=== PATIENT | male | born 1940 | race Caucasian/White ===

== ENCOUNTER → 2019-04-13 10:05 | Outpatient (CLI) | payer MEDICARE, OTHER, SELFPAY ==
--- NOTE | 2019-04-13 | DI.MRI.S_ITS ---
PROCEDURE: MR LUMBAR SPINE WO CON INDICATIONS: pinched nerve TECHNIQUE: Noncontrast sagittal T1 spin echo and T2 fast echo, sagittal STIR, axial T1 and T2 fast spin echo through the lumbar spine. In cases with scoliosis, additional coronal T2 fast spin echo may be performed. COMPARISON: None. FINDINGS: Image quality: Excellent. Alignment and Curvature: There is normal bony alignment. Bone Marrow: Reactive endplate changes noted at L2-L3, L3-L4, L4-L5 and L5-S1 discs. No acute vertebral body compression fractures. Spinal Cord: Conus medullaris terminates at the L1 level. Visualized cord demonstrates normal signal and size. Paraspinous Soft Tissues: No paravertebral masses. L1-L2: Loss of disc signal. Minimal, diffuse disc bulge. Mild bilateral facet hypertrophy. No central stenosis. Mild bilateral neural foraminal narrowing. No neural impingement. L2-L3: Loss of disc signal and height. Mild, diffuse disc bulge. Moderate facet and severe ligamentum flavum hypertrophy. Severe narrowing of the central canal with compression of the nerve roots of the cauda equina. Mild right and moderate left neural foraminal narrowing. L3-L4: Loss of disc signal and height. Mild, diffuse disc bulge. Right central disc protrusion. Right central disc protrusion abuts and slightly displaces the traversing right L4 nerve root. Mild bilateral facet hypertrophy. Mild to moderate narrowing of the central canal. Mild bilateral neural foraminal narrowing. L4-L5: Loss of disc signal. Mild loss of disc height. Mild, diffuse disc bulge. Moderate facet and moderate ligamentum flavum hypertrophy. Moderate narrowing of the central canal. Severe right and moderate left neural foraminal narrowing with compression of the exiting right L4 nerve root. L5-S1: Loss of the signal. Minimal, diffuse disc bulge. Moderate bilateral facet. Epidural lipomatosis. Moderate narrowing of the central canal. Moderate bilateral neural foraminal narrowing. No neural impingement. IMPRESSION: 1. Multilevel degenerative disease. 2. Multilevel facet arthropathy. 3. Severe L2-L3 central canal stenosis. Moderate L4-L5 central canal narrowing. Mild to moderate L3-L4 central canal narrowing. 4. Severe right and moderate left L4-L5 neural foraminal narrowing. Moderate bilateral L5-S1 neural foraminal narrowing. Mild right and moderate left L2-L3 neural foraminal narrowing. Mild bilateral L1-L2 and L3-L4 neuroforaminal narrowing. 5. Compression of the exiting right L4 nerve root secondary to neural foraminal narrowing. Please correlate with clinical data. 6. Compression of the nerve roots of cauda equina secondary to L2-L3 central canal narrowing. Please correlate with clinical data. Dictated by: Tatyana Wesley MD, PhD on 04/13/2019 at 13:17 Approved by: Tatyana Wesley MD, PhD on 04/13/2019 at 13:32
== END ==
PROVIDERS: Visit Provider Orthopaedic Surgery Orthopaedic Surgery of the Spine
DX: M54.5 Low back pain (principal); M51.36 Other intervertebral disc degeneration, lumbar region; M47.816 Spondylosis without myelopathy or radiculopathy, lumbar region; M47.817 Spondylosis without myelopathy or radiculopathy, lumbosacral region; M48.061 Spinal stenosis, lumbar region without neurogenic claudication; M48.07 Spinal stenosis, lumbosacral region; E88.2 Lipomatosis, not elsewhere classified
CPT/HCPCS: 72148

== ENCOUNTER 2019-07-04 09:35 | Inpatient (IN) | payer MEDICARE, OTHER, SELFPAY ==
[2019-06-29 14:35] VITALS: BMI 33.7
[2019-07-04] VITALS (20 sets, daily range): BP systolic 87–150; BP diastolic 45–80; PULSE 43–64; RESP 10–20; TEMP 36–36.9; O2SAT 90–99; BMI 32.8
--- NOTE | 2019-07-04 06:00 | DI.RAD.S_ITS ---
PROCEDURE: XR PELVIS 1-2V INDICATIONS: post op TECHNIQUE: 1 view of the lower pelvis acquired. COMPARISON: None. FINDINGS: Bones: Patient is status post left hip arthroplasty, with hardware components in expected positions. The hip joint appears congruent. The visualized bony structures appear intact. Soft tissues: Overlying postoperative changes are noted. No suspicious soft tissue densities. IMPRESSION: Expected postoperative appearance. Dictated by: Bladimir Ramey M.D. on 07/04/2019 at 16:58 Approved by: Bladimir Ramey M.D. on 07/04/2019 at 16:59
[2019-07-04] MEDS: PREGABALIN 75 MG CAPSULE PO (10:06)
[2019-07-04] MEDS: CELECOXIB 200 MG CAPSULE PO (10:07)
[2019-07-04] MEDS: ACETAMINOPHEN 325 MG TABLET 975 MG PO ×2 (10:07→21:49)
[2019-07-04] MEDS: LACTATED RINGERS 1,000 ML 42 ML IV (11:25)
--- NOTE | 2019-07-04 11:46 | PM.PREOP ---
Pre-operative Note Interval Note History & Physical reviewed/Exam performed by Physician: Yes Changes to H&P: No
[2019-07-04] MEDS: CEFAZOLIN 2 GM/100 ML FROZ.PIGGY IV ×2 (12:35→21:49)
--- NOTE | 2019-07-04 13:09 | SUR.OPER ---
Lateral on padded OR bed. Gel axillary roll. Arms secured on padded armboard with pillow supporting top arm. Padded hip positioner braces x4 - anterior and posterior chest and pelvis. Additional gel pad used anterior pelvis. Gel pad under bottom leg from knee to foot and secured with tape over sheet.
[2019-07-04] MEDS: KETOROLAC 30 MG/ML VIAL IV (13:13)
[2019-07-04] MEDS: ROPIVACAINE 0.5% PF 5 MG/ML 20ML VIAL 60 ML INJ (13:13)
[2019-07-04] MEDS: MORPHINE 4 MG/ML INJ INJ (13:13)
--- NOTE | 2019-07-04 14:15 | P.OP_ITS ---
Operative Date/Time/Diagnoses Date of procedure: 07/04/19 Time of procedure: 14:15 Pre-op diagnosis: Left hip degenerative joint disease Post-op diagnosis: same Procedure & Clinicians Procedure: Left total hip arthroplasty (CPT code 34154 with elder assistant) Same procedure as scheduled: Yes Indications: Patient is an 78-year-old male with severe left hip DJD. The patient has pain with activities and at rest, limited ambulation and activity tolerance, difficulties with ADLs, and failure of conservative treatment. We have discussed the nature of condition, treatment options, risks and benefits, and patient elects to proceed with total hip arthroplasty and gives informed consent. Surgeon: Jhonatan Braun Senior Military Analyst: Florin Barba Anesthesia Type: General and Spinal Operative Notes Closure Type: primary Specimen(s): none sent Prosthetic devices, grafts, tissues, transplants, or devices: Acetabulum: Henderson [employer] Nephew R3 acetabular component size 54 mm Femoral component: Henderson [employer] Nephew Anthology stem size 7 with high offset Femoral head: 36 mm + 4 cobalt chrome Estimated Blood Loss (mL): 150 Procedure in detail: After induction of anesthetic, and administration of IV antibiotics, the patient was positioned in the lateral decubitus position with all bony prominences well padded and pelvic position secured using a hip commercial finance manager positioning device. Left hip and lower extremity prepped and draped in the usual sterile fashion, then a longitudinal incision was created centered over the greater trochanter and carried sharply through the skin and subcutaneous tissues down to the fascia dana which was divided longitudinally and retracted with a Charnley retractor. External rotators visualize, cut, tagged, and retracted posteriorly, then the capsule was cut in a T-type fashion with the corners tagged and retracted. Hip was dislocated and femoral neck cut made accor ding to preoperative templating. Acetabular retractors then placed, and the acetabular labrum and osteophytes were excised. The acetabulum was then sequentially reamed to 53 mm with an excellent circumferential ream and fit with the trial. The trial component was removed and a permanent size 54 mm Henderson and Nephew R3 acetabular component was selected, positioned, and impacted with satisfactory position and fixation achieved. Permanent liner was then inserted with the elevated lip directed posteriorly. Soft tissue then removed off the lateral femoral neck in the lateral neck was entered using a box osteotome. T- handled reamers placed down the canal followed by sequential broaching to 7 with the final broach left in place for trial reduction which demonstrated good leg length, range of motion, and stability characteristics with a 36 mm +4 trial ball, and another trial performed with a high offset neck which yielded excellent leg length range of motion and stability characteristics. The trial and broach were removed, and a permanent size 7 high offset Henderson and Nephew Anthology stem was selected and inserted with excellent position and fixation achieved. Another trial reduction yielded the above characteristics so the trial ball was exchanged for a permanent 36 mm +4 cobalt chrome ball. The hip was irrigated and reduced and excellent leg length range of motion and stability bogdan racteristics were achieved and maintained. Periarticular tissues were infiltrated with combination of ropivacaine, morphine, and Toradol. The hip was copiously irrigated, and the capsule repaired with #2 Ethibond, and the piriformis was repaired back to the greater trochanter with the same. Fascia dana closed with interrupted #1 Ethibond sutures, and the subcutaneous tissues were closed in 2 layers of 0 Vicryl and 2 0 Vicryl. Skin was closed with sekou and sterile dressings applied, and anesthetic was terminated. Complications: none Post-operative Condition: stable Disposition: PACU Plan for aftercare: Patient will be admitted to the acute care [facility], and anticipate discharge on postop day 1 or 2 with follow-up in office in 10-14 days. Outpatient physical therapy will be arranged and patient will continue to observe posterior hip precautions. Patient will continue use of postoperative Lovenox for 10 days postop.
--- NOTE | 2019-07-04 15:00 | PC.ADMIT ---
[address] Admission Note: The patient,Mele Koroma,78 y/o, was given written information regarding hospital policies, unit procedures and contact persons. Patient's smoking status: Former smoker. Vital Signs - 8 hr 07/04/19 10:13 07/04/19 14:15 07/04/19 14:19 Temperature 97.0 F L 98.5 F Pulse Rate 52 L 52 L 50 L Respiratory Rate 18 17 12 Blood Pressure 150/72 H 87/45 L 91/60 Pulse Oximetry 99 96 96 07/04/19 14:24 07/04/19 14:30 07/04/19 14:35 Temperature Pulse Rate 50 L 50 L 51 L Respiratory Rate 10 L 10 L 16 Blood Pressure 91/51 L 102/72 108/47 L Pulse Oximetry 94 95 96 07/04/19 14:40 07/04/19 14:44 07/04/19 14:55 Temperature 97.9 F 97.3 F L Pulse Rate 48 L 48 L 46 L Respiratory Rate 16 16 Blood Pressure 120/61 114/55 L 111/80 Pulse Oximetry 97 95 07/04/19 14:58 Temperature 97.3 F L Pulse Rate 46 L Respiratory Rate 16 Blood Pressure 111/80 Pulse Oximetry 95 Rec'd pt from PACU at 1450 in pt bed. Pt is AAO x3 with clear speech. No movement to BLE r/t spinal anesthesia. VSS. RA. Oriented to room, environment, plan of care. Denies pain. Denies urge to urinate. Bulky dsg CDI. Ice pack applied. Call light in reach.
[2019-07-04] MEDS: LACTATED RINGERS 1,000 ML 125 ML IV (17:05)
--- NOTE | 2019-07-04 17:50 | PC.NURSE ---
Addendum entered by Marissa Vargas R.N. 07/04/19 22:44: 22:30- pt unable to void after sitting at bedside with urinal for 20 minutes. bladder scan shows 377 ml. Order to straight cath for over 400 ml. Original Note: demi note Pt has numbness to feet, but is able to slightly wiggle toes. pt Was tolerating water and ice chips. Ordered pt full liquid diet for dinner. Pt ate 2 spoonfuls of soup and vomited 700 ml of water. Diet downgraded to sips/chips. pt said nausea came on suddenly and resolved after emesis.
[2019-07-04] MEDS: ONDANSETRON 4 MG/2 ML INJ IV (19:28)
[2019-07-04] MEDS: diphenhydrAMINE 50 MG/ML VIAL 25 MG IV (19:28)
[2019-07-04] MEDS: ASPIRIN EC 81 MG TABLET PO (21:50)
[2019-07-04] MEDS: LOSARTAN 50 MG TABLET 100 MG PO (21:50)
[2019-07-04] MEDS: SIMVASTATIN 40 MG TABLET PO (21:51)
[2019-07-05] VITALS (7 sets, daily range): BP systolic 102–135; BP diastolic 38–63; PULSE 55–77; RESP 14–21; TEMP 36.8–37.3; O2SAT 94–98
[2019-07-05] MEDS: ONDANSETRON 4 MG/2 ML INJ IV (00:14)
[2019-07-05] MEDS: diphenhydrAMINE 50 MG/ML VIAL 25 MG IV (00:14)
[2019-07-05] MEDS: LACTATED RINGERS 1,000 ML 125 ML IV (01:29)
[2019-07-05 04:56] LABS: Hematocrit 32.6 % (41-53); Hemoglobin 11.3 g/dL (13.5-17.5)
[2019-07-05] MEDS: CEFAZOLIN 2 GM/100 ML FROZ.PIGGY IV (05:00)
[2019-07-05] MEDS: FUROSEMIDE 20 MG TABLET PO (05:07)
[2019-07-05] MEDS: PANTOPRAZOLE 20 MG TABLET PO (05:07)
--- NOTE | 2019-07-05 06:37 | PC.NURSE ---
Patient has denied pain throughout night, states he has full sensation to BLEs, sat at side of bed to attempt to void at 0230, unable, bladder scan read 264ml, however previous scan at 230 read 377ml. Straight cath done, 400ml clear concentrated urine returned, patient tolerated well. AM dose of PO Lasix given at 0600 per his request. VSS. LR infusing at 125ml/hr, taking in large amounts of fluid without nausea. Lt hip drsg reinforced.
[2019-07-05] MEDS: ENOXAPARIN 40 MG/0.4 ML SYRINGE SUBCUT (08:16)
[2019-07-05] MEDS: CARVEDILOL 25 MG TABLET PO ×2 (08:16→20:40)
[2019-07-05] MEDS: ASPIRIN EC 81 MG TABLET PO ×2 (08:16→20:40)
[2019-07-05] MEDS: ACETAMINOPHEN 325 MG TABLET 975 MG PO ×2 (08:16→18:58)
[2019-07-05] MEDS: SPIRONOLACTONE 25 MG TABLET PO (08:17)
[2019-07-05] MEDS: LOSARTAN 50 MG TABLET PO (08:17)
[2019-07-05] MEDS: MULTIVITAMIN 1 TABLET 1 TAB PO (08:17)
[2019-07-05] MEDS: FINASTERIDE 5 MG TABLET PO (08:17)
[2019-07-05] MEDS: TERAZOSIN 5 MG CAPSULE 10 MG PO (08:17)
--- NOTE | 2019-07-05 08:30 | CM.DANOTE ---
DCP: Case received, EMR reviewed and met with patient. Introduced self and role. Was able to meet with patient in his room this morning to obtain baseline activity and health status. DCP assessment/template completed with information currently available. Patient is a 78 year old male who admitted yesterday morning to the care of the orthopedic team. PCP: Dr. Siegel. Payer: confirmed: Medicare/ for Life Patient came to the hospital for a surgical procedure. He had a left total hip arthroplasty. Patient has history of degenerative joint disease. Met with patient in his room. Pleasant, alert and oriented. He was sitting up in his bed getting ready for breakfast. Confirmed his primary care provider, as stated above. Patient has been independent. He mentioned that he has not used any canes or walkers prior to his surgery, but his did get him a walker for use. He resides with his , Radha, in [place]. P: DCP to continue to follow. He will be working with physical therapy. He has outpatient physical therapy set up at [facility]. Will collaborate with physical therapy team. Patient should be able to go home when medically stable, and cleared by P.T. Jenna Morales RN/Ripper Operator
--- NOTE | 2019-07-05 10:35 | PT.IIE ---
Current Diagnoses Unilateral primary osteoarthritis, left hip (07/04/19) Spinal stenosis, lumbar region with neurogenic claudication (07/04/19) Strain of muscle, fascia and tendon at neck level, initial encounter (07/04/19) Surgery Performed Operation Date: 07/04/19 11:45 Actual Procedures p Total Hip Arthroplasty(Left) - Jhonatan Braun MD Surgical History (Last Updated 06/29/19 @ 14:54 by Gabby Dahl, RN) Hx of appendectomy (Acute) Hx of cardiac cath (Acute 06/15/19) Medical History (Last Updated 06/29/19 @ 14:54 by Gabby Dahl RN) Bladder cancer (Acute) BPH (benign prostatic hyperplasia) (Acute) CAD (coronary artery disease) (Acute) CHF (congestive heart failure) (Acute) Colonic polyp (Acute) Cyst (Acute) Former smoker (Acute) GERD (gastroesophageal reflux disease) (Acute) HLD (hyperlipidemia) (Acute) HTN (hypertension) (Acute) Hyperbilirubinemia (Acute) Myocardial infarct (Acute ~1995) Subclinical hyperthyroidism (Acute ~02/2014) Physical Therapy Inpatient Evaluation/Re-Eval M1 PT/OT-IP Prior Functional Status Start: 07/05/19 13:30 Freq: NEEDED Status: Active Protocol: Document 07/05/19 10:35 AB (Rec: 07/05/19 13:50 AB [id number]) Medical Review Prior Functional Status Medical History Reviewed Yes Communication able to make needs known Mobility and Gait pt stated that he is independent with all mobilities and ambulation without AD Social History Household Members spouse Living Arrangements House Number of Floors (Floors) One Floor Number of Stairs To Enter/Railing? 2 steps to enter with bilateral rails Home Environment High Toilet,Walk in Shower Home Equipment Front Wheel Walker,Four Wheel Walker,Straight Cane,Crutches, Raised Toilet Seat w/Armrests, Shower Seat with Backrest,Hand Held Shower,Grab Bars In Shower M2 PT-IP Current Condition Start: 07/05/19 13:30 Freq: NEEDED Status: Active Protocol: Document 07/05/19 10:35 AB (Rec: 07/05/19 13:50 AB [id number]) Physical Therapy Current Condition Current Condition Evaluation Date 07/05/19 Treatment Diagnosis s/p L JOVANNY posterior approach; difficulty in walking Onset Date 07/04/19 Precautions Posterior Hip Precautions No Hip Flexion > 90 degrees,No Hip Internal Rotation,No Hip Adduction Weight Bearing Status Weight Bearing Status Weight Bear as Tolerated M3 PT-IP Subjective Start: 07/05/19 13:30 Freq: NEEDED Status: Active Protocol: Document 07/05/19 10:35 AB (Rec: 07/05/19 13:50 AB [id number]) Subjective Physical Therapy Visit Type Type Initial Evaluation Visit Start Time 10:35 Visit Stop Time 11:17 Total Visit Minutes 42 Number of BRIDGE CARPENTER Visits 0 Physical Therapy Visit Comments Patient Comments Pt agreeable to do PT Patient Goals to go home Therapy Pain Assessment Pain When Pain Assessed During Mobility Pain Present Pain Present Pain Reported Location Left Hip Scale Used pain scale not stated Pain Management Techniques Timing of Activity with Medications M4 PT-IP Mobility and Gait Start: 07/05/19 13:30 Freq: NEEDED Status: Active Protocol: Document 07/05/19 10:35 AB (Rec: 07/05/19 13:50 AB [id number]) PT-Bed Mobility Assessment Supine to Sit Supine to Sit Standby Assistance Scooting Scooting to Edge of Bed Standby Assistance PT-Transfer Assessment Sit to and From Stand Sit to and from Stand Moderate Assistance,Maximum Assistance,1 Person Assistance ,Use of Upper Extremities Equipment Transfer Assistive Device Gait Belt,Front Wheeled Walker Orthotic/Prosthetic Devices or Brace: No Transfers Transfer Destination Chair Transfer Technique Stand Step Pivot Transfer Ability Level of Assist Moderate Assistance,Maximum Assistance,1 Person Assistance ,Use of Upper Extremities Comments Mobility Comments attempted sit <>stand x 3 reps, mod to max A requires and max cues for techniques and how to maintain hip precautions. Gait Assessment Gait Gait Assistance Required: Moderate Assistance Distance (Feet) 10 Able to Maintain Weight Bearing Status Yes During Gait Assistive Devices Assistive Device Gait Belt,Front Wheeled Walker Orthotic/Prosthetic Devices or Brace: No Gait Deviations General Gait Pattern Antalgic,Decreased Stride Length,Decreased Feet Clearance,Step-to Gait Factors Limiting Gait Function Factors Limiting Gait Function Decreased Activity Tolerance, Decreased Strength,Limited Range of Motion,Pain,Poor Balance,Poor Safety Awareness Comments Gait Comments pt can be impulsive and requires cues tjo maintain hip precautions. PT-Balance Assessment Sitting Balance and Reactions Static Sitting Balance Ability Good Dynamic Sitting Balance Ability Good Standing Balance and Reactions Static Standing Balance Ability Fair Dynamic Standing Balance Ability Poor Device Used FWW M5 PT-IP Objective Assessments Start: 07/05/19 13:30 Freq: NEEDED Status: Active Protocol: Document 07/05/19 10:35 AB (Rec: 07/05/19 13:50 AB [id number]) Orientation Orientation/Cognition Level of Alertness Alert Orientation Name,Age,Place,Situation Safety Awareness Decreased Safety Awareness Memory Description Short Term Impaired Gross Range of Motion Lower Extremity ROM Assessment Within Functional Limits Strength Lower Extremity Strength Assessment Bilaterally Impaired Comments Strength Comments RLE 3+/5 LLE: 3-/5 Coordination Assessment Gross Coordination Gross Coordination WNL Sensation Assessment Sensation Gross Sensation WNL Muscle Tone Muscle Tone WNL Yes M6 PT-IP Treatment Start: 07/05/19 13:30 Freq: NEEDED Status: Active Protocol: Document 07/05/19 10:35 AB (Rec: 07/05/19 13:50 AB [id number]) Physical Therapy Treatment Education Education Provided Precautions,Weight Bearing Status,Post-Op Packet,Safety M7 PT-IP Assessment and Plan Start: 07/05/19 13:30 Freq: NEEDED Status: Active Protocol: Document 07/05/19 10:35 AB (Rec: 07/05/19 13:50 AB [id number]) PT Summary Assessment and Plan Potential Rehabilitation Potential Good Status of Condition at Evaluation Evolving Summary Impairments Pain,ROM,Strength,Balance, Coordination,Sensation,Tone, Cognition,Bed Mobility, Transfers,Gait,Activity Tolerance Assessment Summary pt requiring mod to max A with transfers and ambulation using FWW. d/c plan depending on progress. will conduct caregiver training and stair climbing training when appropriate. will continue to assess progress for safe d/c plan. Goals Bed Mobility Goal Independent Transfer Goal Standby Assistance,Front Wheeled Walker Gait Goal Standby Assistance,Front Wheel Walker Gait Distance 150 Other Goals up/down 2 steps bilateral rails SBA Days to Meet Goals 5 Frequency of Treatment Frequency Of Treatment Twice a Day Treatment Plan Physical Therapy Treatment Plan Bed Mobility Training,Transfer Training,Gait Training, Therapeutic Exercise,Balance Retraining,Post Op Education, Discharge Planning,Hot or Cold Pack,Neuromuscular Re-ed, Coordination Retraining,Manual Therapy Other Recommendations and Next Treatment caregiver training, ambulation Focus , stair climbing; sti<>stand Recommendations To Nursing Amount of Assist Needed 1 Person Assist Discharge Recommendations PT Discharge Recommendations Home with 24/ Assist,Home Health,SNF Rehab,Outpatient PT Other Discharge Recommendations depending on progress: SNF vs home with 20/04 and outpt/HHPT
[2019-07-05] MEDS: ONDANSETRON 4 MG ODT PO (11:19)
--- NOTE | 2019-07-05 13:51 | PC.NURSE ---
Day Shift Note Pt up with PT to chair, had episode of emesis (150 ml out), denied nausea after event. BP was in the 120s systolic. Tolerated lunch without issue, no further episodes. Last void was 0330 via straight cath - pt drinking several cups of water throughout shift (see I&Os) but was unable to void via urinal x2 while standing. Bladder scanned with 521 ml showing in bladder. About 600 ml of clear malinda urine resulted with catheter placement. Message left for MARTY Aquino to update on the above. Pt continues to deny pain. Call light within reach, using appropriately to make needs known.
--- NOTE | 2019-07-05 14:30 | PC.NURSE ---
Day Shift Note Pt up with PT to chair, had episode of emesis (150 ml out), denied nausea after event. BP was in the 120s systolic. Tolerated lunch without issue, no further episodes. Last void was 0330 via straight cath - pt drinking several cups of water throughout shift (see I&Os) but was unable to void via urinal x2 while standing. Bladder scanned with 521 ml showing in bladder. About 400 ml of clear malinda urine resulted with catheter placement. Message left for MARTY Aquino to update on the above. Pt continues to deny pain. Call light within reach, using appropriately to make needs known.
--- NOTE | 2019-07-05 16:09 | PM.PNPO.1 ---
Subjective Subjective Date Patient Seen: 07/05/19 Time Patient Seen: 07:09 Interval history: Postop day 1 status post total hip arthroplasty with Dr. Braun. Patient had to be straight cathed last night. He has a history of BPH. He has no complaints of pain. He has been up with physical therapy. Exam Vital Signs (past 8 hours): - 07/05/19 09:30 07/05/19 11:51 Temperature 98.5 F Pulse Rate 77 55 L Respiratory Rate 16 Blood Pressure 106/39 L Pulse Oximetry 94 97 Oxygen Delivery Method Room Air Oxygen Flow Rate 0 Narrative Exam Narrative: Patient is sitting in bed center no acute distress. He is alert and oriented x3. Calves are soft, compressible, nontender bilaterally. Dressing CDI. Pulses are symmetrical. He is able to actively dorsiflex plantar flex. Objective Labs Result Diagrams: 07/05/19 04:42 Labs: Laboratory Results - last 24 hr 07/04/19 07/05/19 16:45 04:42 Hgb 11.3 L Hct 32.6 L Nasal Screen MRSA (PCR) Negative for mrsa Assessment & Plan Post-op Postoperative Procedures: Procedures Operation Date: 07/04/19 11:45 Actual Procedures Side Surgeon p Total Hip Arthroplasty Left Jhonatan Braun MD Plan to get up with physical therapy today. If he needs to be straight cathed again he may need a Gayle catheter. Plan to remove Gayle catheter tomorrow. Continue Lovenox for DVT prophylaxis. Discharge in next 1-2 days once mobilizing safely, voiding, and pain under control. Quality VTE Deep Vein Thrombosis/Pulmonary Embolism Present on Admission: No
--- NOTE | 2019-07-05 16:12 | PT.IPTN ---
Current Diagnoses Unilateral primary osteoarthritis, left hip (07/04/19) Spinal stenosis, lumbar region with neurogenic claudication (07/04/19) Strain of muscle, fascia and tendon at neck level, initial encounter (07/04/19) Surgery Performed Operation Date: 07/04/19 11:45 Actual Procedures p Total Hip Arthroplasty(Left) - Jhonatan Braun MD Physical Therapy Treatment Note M2 PT-IP Current Condition Start: 07/05/19 13:30 Freq: NEEDED Status: Active Protocol: Document 07/05/19 10:35 AB (Rec: 07/05/19 13:50 AB [id number]) Physical Therapy Current Condition Current Condition Evaluation Date 07/05/19 Treatment Diagnosis s/p L JOVANNY posterior approach; difficulty in walking Onset Date 07/04/19 Precautions Posterior Hip Precautions No Hip Flexion > 90 degrees,No Hip Internal Rotation,No Hip Adduction Weight Bearing Status Weight Bearing Status Weight Bear as Tolerated M3 PT-IP Subjective Start: 07/05/19 13:30 Freq: NEEDED Status: Active Protocol: Document 07/05/19 16:12 AB (Rec: 07/05/19 17:32 AB [id number]) Subjective Physical Therapy Visit Type Type Treatment Note Visit Start Time 16:12 Visit Stop Time 16:52 Total Visit Minutes 40 Number of E COMMERCE MANAGER Visits 0 Physical Therapy Visit Comments Patient Comments pt agreeable to do PT Therapy Pain Assessment Pain When Pain Assessed During Mobility Location Left Hip Scale Used c/o slight soreness and not really pain per pt M4 PT-IP Mobility and Gait Start: 07/05/19 13:30 Freq: NEEDED Status: Active Protocol: Document 07/05/19 16:12 AB (Rec: 07/05/19 17:32 AB [id number]) PT-Bed Mobility Assessment Supine to Sit Supine to Sit Minimal Assistance,1 Person Assistance PT-Transfer Assessment Sit to and From Stand Sit to and from Stand Minimal Assistance,1 Person Assistance,Use of Upper Extremities Equipment Transfer Assistive Device Gait Belt,Front Wheeled Walker Orthotic/Prosthetic Devices or Brace: No Transfers Transfer Destination Chair Transfer Technique Stand Step Pivot Transfer Ability Level of Assist Contact Guard Assistance,1 Person Assistance,Use of Upper Extremities Comments Mobility Comments caregiver training conducted. educated spouse on how to assist pt with bed mobility, transfers and ambulation, use of safety belt. caregiver was able to put safety belt on and assist pt with sit to stand. pt ambulated ~ 75 ft using FWW CGA to min A and cues for quad activation. spouse was able to assist pt with ambulation and also assist pt with transfer to the chair using FWW. Gait Assessment Gait Gait Assistance Required: Contact Guard Assist,Minimum Assistance Distance (Feet) 75 Able to Maintain Weight Bearing Status Yes During Gait Assistive Devices Assistive Device Gait Belt,Front Wheeled Walker Orthotic/Prosthetic Devices or Brace: No Gait Deviations General Gait Pattern Antalgic,Decreased Stride Length,Decreased Feet Clearance,Step-to Gait Factors Limiting Gait Function Factors Limiting Gait Function Decreased Activity Tolerance, Decreased Strength,Limited Range of Motion,Poor Balance, Poor Safety Awareness Stair Climbing Assessment Evaluation Level of Assist On Stairs Moderate Assistance,1 Person Assistance Devices Stair Climbing Assistive Devices Left Railing,Right Railing Technique/Endurance Stair Climbing Direction Ascend and Descend Stair Climbing Technique Step to Step Number of Steps Climbed 1 Stair Climbing Set # Repetitions (reps) 1 Comments Stair Climbing Comments completed up/down step stool with rail/side of FWW on other side for support. pt completed with mod A and cues. will conduct more stair training next tx session and also caregiver training. M5 PT-IP Objective Assessments Start: 07/05/19 13:30 Freq: NEEDED Status: Active Protocol: Document 07/05/19 10:35 AB (Rec: 07/05/19 13:50 AB [id number]) Orientation Orientation/Cognition Level of Alertness Alert Orientation Name,Age,Place,Situation Safety Awareness Decreased Safety Awareness Memory Description Short Term Impaired Gross Range of Motion Lower Extremity ROM Assessment Within Functional Limits Strength Lower Extremity Strength Assessment Bilaterally Impaired Comments Strength Comments RLE 3+/5 LLE: 3-/5 Coordination Assessment Gross Coordination Gross Coordination WNL Sensation Assessment Sensation Gross Sensation WNL Muscle Tone Muscle Tone WNL Yes M6 PT-IP Treatment Start: 07/05/19 13:30 Freq: NEEDED Status: Active Protocol: Document 07/05/19 16:12 AB (Rec: 07/05/19 17:32 AB [id number]) Physical Therapy Treatment Education Education Provided Precautions,Safety M7 PT-IP Assessment and Plan Start: 07/05/19 13:30 Freq: NEEDED Status: Active Protocol: Document 07/05/19 16:12 AB (Rec: 07/05/19 17:32 AB [id number]) PT Summary Assessment and Plan Potential Rehabilitation Potential Good Summary Impairments Pain,ROM,Strength,Balance, Cognition,Bed Mobility, Transfers,Gait,Activity Tolerance Progress Towards Goals Slow Progress due to Activity Tolerance Assessment Summary pt caregiver training initiated and spouse was able to assist pt with transfers and ambulation using FWW. further stair climbing training will be conducted next tx session as well as caregiver training. pt plans to go home and spouse to assist pt at home. Goals Bed Mobility Goal Independent Transfer Goal Standby Assistance,Front Wheeled Walker Gait Goal Standby Assistance,Front Wheel Walker Gait Distance 150 Other Goals up/down 2 steps bilateral rails SBA Days to Meet Goals 5 Frequency of Treatment Frequency Of Treatment Twice a Day Treatment Plan Physical Therapy Treatment Plan Bed Mobility Training,Transfer Training,Gait Training, Therapeutic Exercise,Balance Retraining,Post Op Education, Discharge Planning,Hot or Cold Pack,Neuromuscular Re-ed, Coordination Retraining,Manual Therapy Other Recommendations and Next Treatment caregiver training, ambulation Focus , stair climbing; sti<>stand Recommendations To Nursing Amount of Assist Needed 1 Person Assist Discharge Recommendations PT Discharge Recommendations Home with Assistance, Outpatient PT
[2019-07-05] MEDS: SIMVASTATIN 40 MG TABLET PO (20:40)
[2019-07-05] MEDS: LOSARTAN 50 MG TABLET 100 MG PO (20:40)
[2019-07-05] MEDS: HYDROMORPHONE 2 MG TABLET PO (20:43)
[2019-07-05] MEDS: OXYCODONE/ACETAMINOPHEN 5/325 TABLET 1 TAB PO (23:45)
[2019-07-06 04:45] VITALS: BP 100/47; PULSE 62; RESP 16; TEMP 37.3; O2SAT 94
[2019-07-06] MEDS: PANTOPRAZOLE 20 MG TABLET PO ×2 (06:25→16:06)
[2019-07-06] MEDS: OXYCODONE/ACETAMINOPHEN 5/325 TABLET 1 TAB PO (06:25)
[2019-07-06 08:00] VITALS: BP 123/87; PULSE 66; RESP 20; TEMP 37.3; O2SAT 95
[2019-07-06] MEDS: ACETAMINOPHEN 325 MG TABLET 975 MG PO ×2 (09:33→15:15)
[2019-07-06] MEDS: FLUTICASONE 120 SPRAY/16 GM SPRAY.SUSP NASAL (09:33)
[2019-07-06] MEDS: ASPIRIN EC 81 MG TABLET PO (09:34)
[2019-07-06] MEDS: FUROSEMIDE 20 MG TABLET PO (09:34)
[2019-07-06] MEDS: CARVEDILOL 25 MG TABLET PO (09:35)
[2019-07-06] MEDS: MULTIVITAMIN 1 TABLET 1 TAB PO (09:35)
[2019-07-06] MEDS: LOSARTAN 50 MG TABLET PO (09:35)
[2019-07-06] MEDS: ENOXAPARIN 40 MG/0.4 ML SYRINGE SUBCUT (09:35)
[2019-07-06] MEDS: TERAZOSIN 5 MG CAPSULE 10 MG PO (09:45)
[2019-07-06] MEDS: FINASTERIDE 5 MG TABLET PO (09:46)
[2019-07-06] MEDS: SPIRONOLACTONE 25 MG TABLET PO (09:46)
--- NOTE | 2019-07-06 10:12 | PT.IPTN ---
Current Diagnoses Unilateral primary osteoarthritis, left hip (07/04/19) Spinal stenosis, lumbar region with neurogenic claudication (07/04/19) Strain of muscle, fascia and tendon at neck level, initial encounter (07/04/19) Surgery Performed Operation Date: 07/04/19 11:45 Actual Procedures p Total Hip Arthroplasty(Left) - Jhonatan Braun MD Physical Therapy Treatment Note M2 PT-IP Current Condition Start: 07/05/19 13:30 Freq: NEEDED Status: Active Protocol: Document 07/05/19 10:35 AB (Rec: 07/05/19 13:50 AB [id number]) Physical Therapy Current Condition Current Condition Evaluation Date 07/05/19 Treatment Diagnosis s/p L JOVANNY posterior approach; difficulty in walking Onset Date 07/04/19 Precautions Posterior Hip Precautions No Hip Flexion > 90 degrees,No Hip Internal Rotation,No Hip Adduction Weight Bearing Status Weight Bearing Status Weight Bear as Tolerated M3 PT-IP Subjective Start: 07/05/19 13:30 Freq: NEEDED Status: Active Protocol: Document 07/06/19 10:12 AB (Rec: 07/06/19 11:50 AB [id number]) Subjective Physical Therapy Visit Type Type Treatment Note Visit Start Time 10:12 Visit Stop Time 10:42 Total Visit Minutes 30 Number of ALUMINUM BOAT ASSEMBLY SUPERVISOR Visits 0 Physical Therapy Visit Comments Patient Comments pt agreeable to do PT; spouse present for caregiver training Therapy Pain Assessment Pain When Pain Assessed At Rest Pain Present Pain Present Pain Reported Location Left Hip Intensity 3 Scale Used Numeric (1 - 10) Pain Management Techniques Re-positioning,Timing of Activity with Medications M4 PT-IP Mobility and Gait Start: 07/05/19 13:30 Freq: NEEDED Status: Active Protocol: Document 07/06/19 10:12 AB (Rec: 07/06/19 11:50 AB [id number]) PT-Bed Mobility Assessment Supine to Sit Supine to Sit Minimal Assistance,1 Person Assistance Sit to Supine Sit to Supine Minimal Assistance,1 Person Assistance PT-Transfer Assessment Sit to and From Stand Sit to and from Stand Minimal Assistance,1 Person Assistance,Use of Upper Extremities Equipment Transfer Assistive Device Gait Belt,Front Wheeled Walker Orthotic/Prosthetic Devices or Brace: No Comments Mobility Comments Caregiver training conducted. spouse was able to assist pt with bed mobility, transfers and ambulation. initially requiring cues on how to instruct pt but was able to provide cues towards end of tx session. Gait Assessment Gait Gait Assistance Required: Contact Guard Assist Distance (Feet) 40 Able to Maintain Weight Bearing Status Yes During Gait Assistive Devices Assistive Device Gait Belt,Front Wheeled Walker Orthotic/Prosthetic Devices or Brace: No Gait Deviations General Gait Pattern Antalgic,Decreased Stride Length,Decreased Feet Clearance Factors Limiting Gait Function Factors Limiting Gait Function Decreased Activity Tolerance, Decreased Strength,Limited Range of Motion,Pain Stair Climbing Assessment Evaluation Level of Assist On Stairs Contact Guard Assistance Devices Stair Climbing Assistive Devices Left Railing,Right Railing Technique/Endurance Stair Climbing Direction Ascend and Descend Stair Climbing Technique Step to Step Number of Steps Climbed 3 Stair Climbing Set # Repetitions (reps) 1 Comments Stair Climbing Comments educated pt on how to do stairs. educated spouse on how to assist pt. pt completed stairs with spouse assisting. M5 PT-IP Objective Assessments Start: 07/05/19 13:30 Freq: NEEDED Status: Active Protocol: Document 07/05/19 10:35 AB (Rec: 07/05/19 13:50 AB [id number]) Orientation Orientation/Cognition Level of Alertness Alert Orientation Name,Age,Place,Situation Safety Awareness Decreased Safety Awareness Memory Description Short Term Impaired Gross Range of Motion Lower Extremity ROM Assessment Within Functional Limits Strength Lower Extremity Strength Assessment Bilaterally Impaired Comments Strength Comments RLE 3+/5 LLE: 3-/5 Coordination Assessment Gross Coordination Gross Coordination WNL Sensation Assessment Sensation Gross Sensation WNL Muscle Tone Muscle Tone WNL Yes M6 PT-IP Treatment Start: 07/05/19 13:30 Freq: NEEDED Status: Active Protocol: Document 07/06/19 10:12 AB (Rec: 07/06/19 11:50 AB [id number]) Physical Therapy Treatment Education Education Provided Precautions,Safety M7 PT-IP Assessment and Plan Start: 07/05/19 13:30 Freq: NEEDED Status: Active Protocol: Document 07/06/19 10:12 AB (Rec: 07/06/19 11:50 AB [id number]) PT Summary Assessment and Plan Potential Rehabilitation Potential Good Summary Impairments Pain,ROM,Strength,Balance, Coordination,Sensation,Tone, Cognition,Bed Mobility, Transfers,Gait,Activity Tolerance Progress Towards Goals Progressing Toward Goals Assessment Summary caregiver training conducted and spouse was able to assist pt safely. pt may go home when medically stable. Goals Bed Mobility Goal Independent Transfer Goal Standby Assistance,Front Wheeled Walker Gait Goal Standby Assistance,Front Wheel Walker Gait Distance 150 Other Goals up/down 2 steps bilateral rails SBA Days to Meet Goals 5 Frequency of Treatment Frequency Of Treatment Twice a Day Treatment Plan Physical Therapy Treatment Plan Bed Mobility Training,Transfer Training,Gait Training, Therapeutic Exercise,Balance Retraining,Post Op Education, Discharge Planning,Hot or Cold Pack,Neuromuscular Re-ed, Coordination Retraining,Manual Therapy Other Recommendations and Next Treatment caregiver training, ambulation Focus , stair climbing; sti<>stand Recommendations To Nursing Amount of Assist Needed 1 Person Assist Discharge Recommendations PT Discharge Recommendations Home with Assistance, Outpatient PT
--- NOTE | 2019-07-06 11:11 | PM.PNPO.1 ---
Subjective Subjective Date Patient Seen: 07/06/19 Time Patient Seen: 11:11 Interval history: Patient is POD#2 s/p left total hip arthropalsty by Dr. Braun. Pain has been well controlled. He has mobilized with PT. Required straight cath yesterday AM, Gayle was placed yesterday afternoon. This was d/c this morning. He has not voided since. No chest pain, shortness of breath, fevers, chills. Exam Vital Signs (past 8 hours): - 07/06/19 04:45 07/06/19 08:00 Temperature 99.2 F 99.2 F Pulse Rate 62 66 Respiratory Rate 16 20 Blood Pressure 100/47 L 123/87 Pulse Oximetry 94 95 Oxygen Delivery Method Room Air Oxygen Flow Rate 0 Narrative Exam Narrative: Pleasant 78 year old male resting in chair. Alert and oriented. Significant diffuse shadow drainage on bulky dressing, dressing is intact. Able to flex/extend the foot. Sensation intact to light touch. Palpable pedal pulse. Calves soft, compressible. Objective Labs Result Diagrams: 07/05/19 04:42 Assessment & Plan Post-op Postoperative Procedures: Procedures Operation Date: 07/04/19 11:45 Actual Procedures Side Surgeon p Total Hip Arthroplasty Left Jhonatan Braun MD He has mobilized well with PT, continue this. Patient has history of BPH taking terazosin and finasteride, continues to have post operative urinary retention. Gayle was discontinued this AM. Possible discharge to home this afternoon if he is able to resume normal voids. Lovenox for DVT prophylaxis. Quality VTE Deep Vein Thrombosis/Pulmonary Embolism Present on Admission: No
--- NOTE | 2019-07-06 11:17 | CM.DPC ---
DCP: continued: case recieved, EMR reviewed and see that pt id doing well with PT but has had difficulty with voiding and urinary retention. Ortho PA Oly saw pt today and has put in a d/c order but no note thus far. She indicates pt will d/c home this afternoon or later this evening but only when resumes normal voiding pattern. P: home with OUTPT PT when stable for same and pending voids. Will follow prn
--- NOTE | 2019-07-06 15:09 | PC.NURSE ---
call to ortho MARTY (ÁNGEL) to update her that pt has not voided post catheter removal - bladder scan for 219 cc and repors no urge to void yet.- ALSO, informed her that in her d/c rx there was nothing for pain - asked her to call back
[2019-07-06] MEDS: DOCUSATE 100 MG CAPSULE PO (15:15)
--- NOTE | 2019-07-06 18:10 | PC.NURSE ---
1800- Discharge instruction given. IV cannula removed. Patient verbalizes understanding of discharge and is stable at the time of discharge. Patient was able to void prior to discharge.
--- NOTE | 2019-07-26 11:41 | P.DS_ITS ---
History of Present Illness History of Present Illness Date Patient Seen: 07/06/19 Time Patient Seen: 11:11 Chief complaint: [id number] Narrative: Patient is POD#2 s/p left total hip arthropalsty by Dr. Braun. Pain has been well controlled. He has mobilized with PT. Required straight cath yesterday AM, Gayle was placed yesterday afternoon. This was d/c this morning. He has not voided since. No chest pain, shortness of breath, fevers, chills. 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 Braun. Hospital course was notable for post-op urinary retention that resolved on POD#2. On POD#2 patient was ready for discharge home. Patient was ambulating with PT prior to discharge. Patient was voiding and eating without difficulty or assistance prior to discharge. Pain/muscle spasms were controlled with dilaudid PO and vistaril. Patient has oxycodone prescription at home. Lovenox for VTE prophylaxis. Exam Vital Signs (past 8 hours): Oxygen Delivery Method Room Air Oxygen Flow Rate 0 Objective Labs Result Diagrams: 07/05/19 04:42 Discharge Plan Discharge Plan Patient Disposition: Home Discharge comment: Home this afternoon/evening if he resumes normal voids Discharge Med Rec/Prescriptions Prescriptions: New acetaminophen 325 mg Tablet 975 mg PO TID Qty: 40 RF: 0 aspirin 81 mg Tablet,Delayed Release (Dr/Ec) 81 mg PO BID Qty: 40 RF: 0 polyethylene glycol 3350 17 gram Powder In Packet 17 gm PO PRN PRN (Reason: Constipation) Qty: 7 RF: 0 docusate sodium [DOK] 100 mg Capsule 100 mg PO BID Qty: 30 RF: 0 hydroxyzine pamoate 25 mg Capsule 25 mg PO Q6HR PRN (Reason: Spasms) Qty: 40 RF: 0 Continued losartan 50 mg Tablet 50 mg PO SEEINSTR RF: 0 carvedilol 25 mg Tablet 25 mg PO BID RF: 0 spironolactone 25 mg Tablet 25 mg PO DAILY RF: 0 simvastatin 40 mg Tablet 40 mg PO DAILY RF: 0 aspirin 81 mg Tablet,Chewable 81 mg PO DAILY RF: 0 furosemide 20 mg Tablet 20 mg PO DAILY RF: 0 multivitamin Capsule 1 cap PO DAILY RF: 0 fluticasone propionate 50 mcg/actuation [place],Suspension 1 spray INTRANASAL DIRECTED RF: 0 terazosin 10 mg Capsule 10 mg PO DAILY RF: 0 finasteride 5 mg Tablet 5 mg PO DAILY RF: 0 omeprazole 20 mg Tablet,Delayed Release (Dr/Ec) 20 mg PO DAILY RF: 0 Follow up/Referrals: Jhonatan Braun MD [Physician] - Provider Discharge Instructions Diet: Diet as Tolerated Activity: Weight bear as tolerated. Posterior hip precautions. Cold/Heat Therapy: Ice packs as needed. Other treatments: Refer to [facility] guide. Skin/Wound/Dressing Care Report to your healthcare provider any signs of infection, such as:: chills, fever, night sweats, unusual drainage and unusual redness Dressing: Dressing is to remain in place. Call the office if this becomes saturated. Visit Report/Discharge Packet Instructions: DI for Hip Replacement Visit Report Forms: Patient Portal/API, Stroke Signs & Symptoms Discharges patient from system. Discharge Date/Time: 07/06/19 18:00 Quality VTE Deep Vein Thrombosis/Pulmonary Embolism Present on Admission: No
== END 2019-07-06 18:00 | disposition home or self-care (01) | DRG 470 ==
LOC: AC 11:42 → ICU 13:33
PROVIDERS: Admitting Provider Orthopaedic Surgery; Visit Provider Orthopaedic Surgery
PROC: 0SRB0JZ Replacement of Left Hip Joint with Synthetic Substitute, Open Approach (ICD-10-PCS; CPT 27130; principal; 2019-07-04 11:45)
DX: M16.12 Unilateral primary osteoarthritis, left hip (principal); I42.8 Other cardiomyopathies; I11.0 Hypertensive heart disease with heart failure; I50.9 Heart failure, unspecified; I25.10 Atherosclerotic heart disease of native coronary artery without angina pectoris; K21.9 Gastro-esophageal reflux disease without esophagitis; E03.8 Other specified hypothyroidism; N40.0 Benign prostatic hyperplasia without lower urinary tract symptoms; R33.9 Retention of urine, unspecified; Z87.891 Personal history of nicotine dependence
CPT/HCPCS: 36415; 72170; 85014; 85018; 87797; 94760; 97116; 97162; 97530; C1776; J0690; J1200; J1650; J1885; J2250; J2270; J2274; J2405; J2704; J3010

== ENCOUNTER → 2020-03-28 08:01 | Outpatient (CLI) | payer MEDICARE, OTHER, SELFPAY ==
[2020-02-29 10:19] VITALS: BMI 32.8
--- NOTE | 2020-03-28 08:20 | DI.ECHO.S_ITS ---
Version: 1 Study ID: [id number] [place] [address] Name: GRACE SANDY Study Date: 03/28/2020, 8: 20 AM : 1940 BP: 122 / 70 mmHg Gender: Male Height: 72 in Age: 79 Years Weight: 255 lb BSA: 2.36 m?? Ordering: Terry Lo M.D. Referring: TERRY LO Clinician: Emilee Dave Reason For Study: Ischemic cardiomyopathy History: Summary Statements Left ventricular wall thickness is mildly increased. Left ventricular systolic function is low normal. The ejection fraction is estimated to be 50-55%. Compared to the prior exam, the left ventricular function is improved. Diastolic parameters suggest a relaxation abnormality of the left ventricle, consistent with probable normal filling pressures. The right ventricle is normal in size and function. The left atrial size is normal. Right atrial size is normal. There is mild mitral regurgitation. There is no other significant valvular heart disease. The ascending aorta is mild-moderately enlarged. The aortic arch is mildly enlarged. Procedure: A two-dimensional transthoracic echocardiogram with color flow and Doppler was performed. The study quality was technically adequate. There is no prior echocardiogram noted for this patient. The patient was in sinus bradycardia with heart rates between 48-55 bpm during the exam. The patient had occasional PVCs during the exam. Left Ventricle: The left ventricle is normal in size. Left ventricular wall thickness is mildly increased. A false chord is noted (normal variant). Left ventricular global longitudinal strain average is -14.6%. Left ventricular systolic function is low normal. The ejection fraction is estimated to be 50-55%. Compared to the prior exam, the left ventricular function is improved. Septal motion is consistent with conduction abnormality. Diastolic parameters suggest a relaxation abnormality of the left ventricle, consistent with probable normal filling pressures. Right Ventricle: The right ventricle is normal in size and function. Atria: The left atrial size is normal. Right atrial size is normal. There is no Doppler evidence for an interatrial shunt. Mitral Valve: There is mild mitral annular calcification. The mitral valve is grossly normal. There is mild mitral regurgitation. Aortic Valve: The aortic valve is trileaflet. The aortic valve opens well. There is no aortic valve stenosis. There is trace aortic regurgitation. Tricuspid Valve: The tricuspid valve is normal in structure and function. There is a trace or physiologic amount of tricuspid regurgitation. Pulmonary artery pressures cannot be estimated because of the lack of a measurable TR jet velocity but the IVC suggests a CVP of around 3 mmHg. Pulmonic Valve: The pulmonic valve is normal in structure and function. There is trace pulmonic regurgitation. There is no other significant valvular heart disease. Great Vessels: The aortic root is normal size. The ascending aorta is mild-moderately enlarged. The aortic arch is mildly enlarged. The IVC is of normal diameter and collapses greater than 50% with a sniff. This suggests a low right atrial pressure of 3 mm Hg. Pericardium/ Pleura: There is no pericardial effusion. There is an anterior echo-free space consistent with a fat pad. There is no pleural effusion. 2D and M-Mode Measurements and Calculations LVIDd: 5.8 cm AoV Openin.09 cm LVIDs: 4.6 cm LVOT diam: 2.31 cm IVSd: 1.11 cm Ao root diam: 3.4 cm LVPWd: 1.26 cm asc Aorta Diam: 3.9 cm LV cruz. diameter/BSA (cm/m^2): 2.47 Ao Arch Diam (Prox Trans): 3.4 cm LV sys. diameter/BSA (cm/m^2): 1.95 EPSS: 1.83 cm RVD1 (basal): 3.6 cm IVC diam: 0.62 cm TAPSE: 1.78 cm LA A4 area: 19.2 cm?? RA area: 18.3 cm?? LA A2 area: 23.7 cm?? RA long axis: 5.4 cm LA length (vol): 6.0 cm RA vol: 52.5 ml LA vol: 64.7 ml RA : 22.2 ml/m?? LA vol index: 27.4 ml/m?? Doppler Measurements and Calculations Ao V2 max: 139.8 cm/sec LVOT Max Robert: 76.8 cm/sec Ao V2 mean: 86.0 cm/sec LV V1 max P.36 mmHg Ao V2 VTI: 30.1 cm LV V1 VTI: 18.8 cm Ao max P.8 mmHg Ao mean P.6 mmHg AISSATOU(I,D): 2.6 cm?? AISSATOU(V,D): 2.31 cm?? AISSATOU indexed to BSA (cm^2/m^2): 1.11 sev ratio: 0.62 MV E max robert: 47.9 cm/sec MV dec time: 0.46 sec MV A max robert: 96.9 cm/sec MV E/A: 0.49 Med Peak E' Robert: 3.9 cm/sec Lat Peak E' Robert: 7.2 cm/sec E/e' average: 9.5 PA V2 max: 80.4 cm/sec PA mean P.57 mmHg Electronically signed by: Terry Lo M.D. 03/28/2020, 11: 15 AM
== END ==
PROVIDERS: PCP Internal Medicine; Referring Provider Internal Medicine Cardiovascular Disease; Visit Provider Internal Medicine Cardiovascular Disease
DX: I34.0 Nonrheumatic mitral (valve) insufficiency (principal); I25.5 Ischemic cardiomyopathy; I77.89 Other specified disorders of arteries and arterioles
CPT/HCPCS: 93306

== ENCOUNTER → 2020-09-07 10:12 | Outpatient (CLI) | payer MEDICARE, OTHER, SELFPAY ==
[2020-02-29 10:19] VITALS: BMI 32.8
[2020-09-07 11:09] LABS: Add Manual Diff / Slide Review NO; Basophils Absolute Auto 100 /uL (0-100); Eosinophils Absolute Auto 400 /uL (0-450); Eosinophils Percent Auto 5.3 % (2-4); Hematocrit 37.5 % (41-53); Hemoglobin 12.7 g/dL (13.5-17.5); Lymphocytes Absolute Auto 1000 /uL (1100-4500); Lymphocytes Percent Auto 13.4 % (25-40); Mean Corpuscular Hemoglobin 32.6 PG (26-34); Mean Corpuscular Volume 96.1 fL (80-100); Monocytes Absolute Auto 500 /uL (0-900); Monocytes Percent Auto 6.8 % (3-14); Neutrophils Absolute Auto 5300 /uL (1500-7000); Neutrophils Percent Auto 73.5 % (50-75); Platelet Count 158 X10^3/uL (150-400); Red Cell Distribution Width 13.2 % (11.6-14.8); White Blood Cell Count 7.2 X10^3/uL (4.5-11.0)
== END ==
PROVIDERS: PCP Internal Medicine; Referring Provider Internal Medicine; Visit Provider Orthopaedic Surgery
DX: Z01.818 Encounter for other preprocedural examination (principal); Z01.812 Encounter for preprocedural laboratory examination
CPT/HCPCS: 36415; 85025; 93005; 93010

== ENCOUNTER → 2020-09-24 09:56 | Outpatient (CLI) | payer MEDICARE, OTHER, SELFPAY ==
[2020-02-29 10:19] VITALS: BMI 32.8
[2020-09-24 11:21] LABS: COVID19 -Nasal RAPID Negative (Negative)
== END ==
PROVIDERS: PCP Internal Medicine; Visit Provider Nurse Practitioner Family
DX: Z01.812 Encounter for preprocedural laboratory examination (principal); Z20.828 Contact with and (suspected) exposure to other viral communicable diseases
CPT/HCPCS: 87635; C9803

== ENCOUNTER 2020-09-26 08:13 | Day surgery (SDC) | payer MEDICARE, OTHER, SELFPAY ==
[2020-02-29 10:19] VITALS: BMI 32.8
[2020-09-19 13:52] VITALS: BMI 35.9
[2020-09-26] VITALS (19 sets, daily range): BP systolic 139–179; BP diastolic 74–103; PULSE 62–87; RESP 10–20; TEMP 36.2–37.2; O2SAT 86–98; BMI 35.9
--- NOTE | 2020-09-26 06:45 | DI.RAD.S_ITS ---
PROCEDURE: XR PELVIS 1-2V INDICATIONS: right JOVANNY TECHNIQUE: Two views of the lower pelvis acquired. COMPARISON: [facility], , XR PELVIS 1-2V, 07/04/2019, 14:16. FINDINGS: Bones: Patient is status post right total hip arthroplasty, with hardware components in expected positions. The hip joint appears congruent. The visualized bony structures appear intact. A left total hip arthroplasty is redemonstrated. Degenerative changes are seen in the included spine. Soft tissues: Overlying postoperative changes are noted. No suspicious soft tissue densities. IMPRESSION: Status post right total hip arthroplasty with expected postsurgical changes. Dictated by: Law Carpio M.D. on 09/26/2020 at 12:48 Approved by: Law Carpio M.D. on 09/26/2020 at 12:49
[2020-09-26] MEDS: CELECOXIB 200 MG CAPSULE PO (08:43)
[2020-09-26] MEDS: ACETAMINOPHEN 325 MG TABLET 975 MG PO (08:43)
[2020-09-26] MEDS: PREGABALIN 75 MG CAPSULE PO (08:43)
[2020-09-26] MEDS: LACTATED RINGERS 1,000 ML 42 ML IV ×2 (08:49→11:09)
--- NOTE | 2020-09-26 09:17 | PM.PREOP ---
Pre-operative Note COVID-19 COVID-19 status: Negative Result date/Date tested (Pos, Neg/Pending): 09/24/20 Interval Note History & Physical reviewed/Exam performed by Physician: Yes Changes to H&P: No
[2020-09-26] MEDS: CEFAZOLIN 2 GM/100 ML FROZ.PIGGY IV (10:03)
[2020-09-26] MEDS: MORPHINE 4 MG/ML INJ INJ (10:56)
[2020-09-26] MEDS: ROPIVACAINE 0.5% PF 5 MG/ML 20ML VIAL 60 ML INJ (10:56)
[2020-09-26] MEDS: TRANEXAMIC ACID 1,000 MG VIAL 1000 MG INJ ×2 (10:56→11:40)
[2020-09-26] MEDS: KETOROLAC 30 MG/ML VIAL IV (10:56)
--- NOTE | 2020-09-26 12:12 | P.OP_ITS ---
Operative Date/Time/Diagnoses Date of procedure: 09/26/20 Time of procedure: 12:12 Pre-op diagnosis: Right hip degenerative joint disease Post-op diagnosis: same Procedure & Clinicians Procedure: Right total hip arthroplasty (CPT code 89854 with assistant golf course superintendent) Same procedure as scheduled: Yes Indications: Patient is an 80 -year-old male with severe right hip DJD. The patient has pain with activities and at rest, limited ambulation and activity tolerance, difficulties with ADLs, and failure of conservative treatment. We have discussed the nature of condition, treatment options, risks and benefits, and patient elects to proceed with total hip arthroplasty and gives informed consent. Surgeon: Jhonatan Braun Environmental Science Technician: Florin Barba Anesthesia Type: General and Spinal Operative Notes Closure Type: primary Specimen(s): none sent Prosthetic devices, grafts, tissues, transplants, or devices: Acetabulum: Henderson and Nephew R3 acetabular component size 56 mm Femoral component: Henderson and Nephew Anthology stem size 7 with high offset Femoral head: 36 mm + 0 cobalt chrome Estimated Blood Loss (mL): 200 Procedure in detail: After satisfaction induction of anesthetic, and administration of IV antibiotics, the patient was positioned in the lateral decubitus position with all bony prominences well padded and pelvic position secured using a hip mark up designer positioning device. Right hip and lower extremity prepped and draped in the usual sterile fashion, 1st dose of intravenous t ranexamic acid was administered, then a longitudinal incision was created centered over the greater trochanter and carried sharply through the skin and subcutaneous tissues down to the fascia dana which was divided longitudinally and retracted with a Charnley retractor. External rotators visualize, cut, tagged, and retracted posteriorly, then the capsule was cut in a T-type fashion with the corners tagged and retracted. Hip was dislocated and femoral neck cut made according to preoperative templating. Acetabular retractors then placed, and the acetabular labrum and osteophytes were excised. The acetabulum was then sequentially reamed to 55 mm with an excellent circumferential ream and fit with the trial. The trial component was removed and a permanent size 56 mm Henderson and Nephew R3 acetabular component was selected, positioned, and impacted with satisfactory position and fixation achieved. Permanent liner was then inserted with the elevated lip directed posteriorly. Soft tissue then removed off the lateral femoral neck in the lateral neck was entered using a box osteotome. T- handled reamers placed down the canal followed by sequential broaching to 7 with the final broach left in place for trial reduction which demonstrated excellent leg length, range of motion, and stability characteristics with a high offset neck and 36 mm +0 trial ball. The trial and broach were removed, and a permanent size 7 high offset Henderson and Nephew Anthology stem was selected and inserted with excellent position and fixation achieved. Another trial reduction yielded the above characteristics so the trial ball was exchanged for a permanent 36 mm +0 cobalt chrome ball. The hip was irrigated and reduced and excellent leg length range of motion and stability characteristics were achieved and bandar ntained. Periarticular tissues were infiltrated with ropivacaine, morphine, and Toradol. The hip was copiously irrigated, and the capsule repaired with #2 Ethibond, and the piriformis was repaired back to the greater trochanter with the same. Fascia dana closed with interrupted #1 Ethibond sutures, and the subcutaneous tissues were closed in 2 layers of 0 Vicryl and 2 0 Vicryl. Skin was closed with ZipLine skin closure and sterile dressings applied. Second dose of tranexamic acid was administered intravenously, and the anesthetic was terminated. Complications: none Post-operative Condition: stable Disposition: PACU Plan for aftercare: Patient will be admitted to the acute care [facility], and anticipate discharge on postop day 1 with follow-up in office in 10-14 days. Outpatient physical therapy will be arranged and patient will continue to obse rve posterior hip precautions. Patient will continue use of aspirin for DVT prophylaxis postop.
[2020-09-26] MEDS: OXYCODONE IR 5 MG TABLET PO (12:29)
[2020-09-26] MEDS: LACTATED RINGERS 1,000 ML 125 ML IV ×2 (13:29→21:20)
--- NOTE | 2020-09-26 13:33 | PC.NURSE ---
Patient admitted from PACU, oriented to room and call light. Urinal placed within reach. IV fluids started as ordered. at bedside. Patient denies pain. Dressing to right hip remains CDI. Patient moving all extremities. Sipping water and would like to nap at this time. Continue to monitor.
[2020-09-26] MEDS: LOSARTAN 50 MG TABLET 100 MG PO (16:01)
--- NOTE | 2020-09-26 16:25 | PT.IIE ---
Current Diagnoses Unilateral primary osteoarthritis, right hip (09/26/20) Surgery Performed Operation Date: 09/26/20 09:45 Actual Procedures p Total Hip Arthroplasty(Right) - Jhonatan Braun MD Surgical History (Last Updated 09/19/20 @ 14:17 by Gabby Dahl RN) History of total left hip arthroplasty (07/04/19) Hx of appendectomy Hx of bilateral cataract extraction Hx of cardiac cath (06/15/19) Medical History (Last Updated 09/19/20 @ 14:25 by Gabby Dahl RN) Bladder cancer BPH (benign prostatic hyperplasia) CAD (coronary artery disease) Cardiomyopathy CHF (congestive heart failure) Colonic polyp Cyst Former smoker GERD (gastroesophageal reflux disease) HLD (hyperlipidemia) HTN (hypertension) Hyperbilirubinemia Myocardial infarct (~1995) Subclinical hyperthyroidism (~02/2014) Subclinical hypothyroidism Physical Therapy Inpatient Evaluation/Re-Eval M1 PT/OT-IP Prior Functional Status Start: 09/26/20 15:08 Freq: NEEDED Status: Active Protocol: Document 09/26/20 16:01 (Rec: 09/26/20 16:25 [email or web address]) Medical Review Prior Functional Status Medical History Reviewed Yes Diet/Fluid Consistency Regular Communication no deficits noted. Mobility and Gait Pt was IND without AD until 2 months d/t severe R hip pain. Pt then used FWW for all mobility. 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 He stated he is unable to perform SLR, hip flexion. Activities of Daily Living and IADL's independent for ADLs with FWW for the past 2 months. assisted for house cleaning, meal preparation. Prior Functional Level (Other details) pt had L JOVANNY here last year June Social History Household Members spouse Living Arrangements House Number of Floors (Floors) One Floor Number of Stairs To Enter/Railing? 2 MAGALY with B rails Home Environment High Toilet,Walk in Shower Home Equipment Four Wheel Walker,Straight Cane,Crutches,Raised Toilet Seat w/Armrests,Shower Seat with Backrest,Grab Bars In Shower Employment Status Retired Additional Social History Comment pt lives with his in [place]. is able to assist as needed. Pt will participate outpatient PT at [facility]. M2 PT-IP Current Condition Start: 09/26/20 15:08 Freq: NEEDED Status: Active Protocol: Document 09/26/20 16:01 (Rec: 09/26/20 16:25 [email or web address]) Physical Therapy Current Condition Current Condition Evaluation Date 09/26/20 Treatment Diagnosis R JOVANNY (posterior approach), difficulty in walking Onset Date 09/26/20 Precautions Posterior Hip Precautions No Hip Flexion > 90 degrees,No Hip Internal Rotation,No Hip Adduction Weight Bearing Status Weight Bearing Status Weight Bear as Tolerated M3 PT-IP Subjective Start: 09/26/20 15:08 Freq: NEEDED Status: Active Protocol: Document 09/26/20 16:01 (Rec: 09/26/20 16:25 [email or web address]) Subjective Physical Therapy Visit Type Type Initial Evaluation Visit Start Time 15:15 Visit Stop Time 15:52 Total Visit Minutes 37 Notes attended session Number of JOB PLACEMENT COUNSELOR Visits 0 Physical Therapy Visit Comments Patient Comments I think im ready to try PT. Patient Goals To regain his mobility and strength to safely DC home Therapy Pain Assessment Pain Present Pain Present Denied Pain M4 PT-IP Mobility and Gait Start: 09/26/20 15:08 Freq: NEEDED Status: Active Protocol: Document 09/26/20 16:01 (Rec: 09/26/20 16:25 [email or web address]) PT-Bed Mobility Assessment Supine to Sit Supine to Sit Minimal Assistance,1 Person Assistance Scooting Scooting to Edge of Bed Standby Assistance PT-Transfer Assessment Sit to and From Stand Sit to and from Stand Contact Guard Assistance,1 Person Assistance,Use of Upper Extremities Equipment Transfer Assistive Device Gait Belt,Front Wheeled Walker Orthotic/Prosthetic Devices or Brace: No Transfers Transfer Destination Bed,Chair Transfer Technique Stand Step Pivot Transfer Ability Level of Assist Contact Guard Assistance,1 Person Assistance,Use of Upper Extremities Comments Mobility Comments pt was in bed upon assessment. AxO x4. at bedside. Pt has almost full sensation back of his R LE and 75% strength returned. He agreed to mobilize with PT. He initally pivot his RLE to REOB by LLE followed by supine to long but unsuccessful. PAPER RECLAIMING MACHINE OPERATOR provided and he was able to sit up. Pt scooted towards EOB SBA on R side. His BP at 170/117 HR 109 but asymptomatic. He then stood up with staggered stance and FWW CGA. He was able to walk with step to pattern but he initially picked his walk up for every step and needed cues to roll it instead. Pt was able to walk around the room for 2 laps slowly and returned to his chair with good descend with use of chair armrests and staggered stance . Pt sat inchair comfortably with BP 156/108 HR 81. Call light placed within reach. Gait Assessment Gait Gait Assistance Required: Contact Guard Assist Distance (Feet) 22 Able to Maintain Weight Bearing Status Yes During Gait Assistive Devices Assistive Device Gait Belt,Front Wheeled Walker Orthotic/Prosthetic Devices or Brace: No Gait Deviations General Gait Pattern Antalgic,Decreased Stride Length,Decreased Feet Clearance,Step-to Gait Factors Limiting Gait Function Factors Limiting Gait Function Decreased Activity Tolerance, Decreased Strength,Limited Range of Motion,Pain,Poor Balance,Poor Safety Awareness Comments Gait Comments see mobility comments. Stair Climbing Assessment Comments Stair Climbing Comments have not assessed yet PT-Balance Assessment Sitting Balance and Reactions Static Sitting Balance Ability Normal Dynamic Sitting Balance Ability Normal Standing Balance and Reactions Static Standing Balance Ability Good Dynamic Standing Balance Ability Good Device Used FWW M5 PT-IP Objective Assessments Start: 09/26/20 15:08 Freq: NEEDED Status: Active Protocol: Document 09/26/20 16:01 (Rec: 09/26/20 16:25 [email or web address]) Orientation Orientation/Cognition Level of Alertness Alert Orientation Name,Age,Birthday,Month,Date, Year,Day of Week,Place, Situation Language Function Ability No Deficits Noted Safety Awareness Understands Safety Issues Memory Description No Deficits Noted Gross Range of Motion Upper Extremity ROM Assessment Within Functional Limits Lower Extremity ROM Assessment Right Impaired Strength Upper Extremity Strength Assessment Within Functional Limits Lower Extremity Strength Assessment Right Impaired Hip 4-/5 Knee 4+/5 Coordination Assessment Gross Coordination Gross Coordination WNL Sensation Assessment Sensation Gross Sensation WNL Muscle Tone Muscle Tone WNL Yes M6 PT-IP Treatment Start: 09/26/20 15:08 Freq: NEEDED Status: Active Protocol: Document 09/26/20 16:01 (Rec: 09/26/20 16:25 [email or web address]) Physical Therapy Treatment Exercises Exercises Ankle Pumps,Gluteal Sets,Quad Sets,Heel Slides,Straight Leg Raises Education Education Provided Precautions,Weight Bearing Status,Post-Op Packet,Safety M7 PT-IP Assessment and Plan Start: 09/26/20 15:08 Freq: NEEDED Status: Active Protocol: Document 09/26/20 16:01 (Rec: 09/26/20 16:25 [email or web address]) PT Summary Assessment and Plan Potential Rehabilitation Potential Excellent Status of Condition at Evaluation Stable Summary Impairments Pain,ROM,Strength,Balance,Bed Mobility,Transfers,Gait, Activity Tolerance Assessment Summary pt is a 80 yo male s/p POD0 R JOVANNY with posterior approach. PLOF= pt has been having significant R hip pain who had very limited mobility with FWW (home bound) for the past 2 months. was able to assist all the time. Upon assessment, Pt did very well and able to get OOB with min A and CGA for ambulation with FWW around the room with step to pattern. Pt is well aware of his post op precautions. Expect pt to DC home with assistance and outpt PT. (pt does no have a FWW but 4WW. He might be able to use 4WW for mobility depends on his progress.) Goals Bed Mobility Goal Standby Assistance Transfer Goal Standby Assistance,Front Wheeled Walker,Four Wheeled Walker Gait Goal Standby Assistance,Front Wheel Walker,Four Wheel Walker Gait Distance 200 Other Goals 2 MAGALY with B rails Days to Meet Goals 3 Frequency of Treatment Frequency Of Treatment Twice a Day Treatment Plan Physical Therapy Treatment Plan Bed Mobility Training,Transfer Training,Gait Training, Therapeutic Exercise,Balance Retraining,Post Op Education, Discharge Planning,Hot or Cold Pack,Neuromuscular Re-ed Other Recommendations and Next Treatment vitals (pt has high BP) Focus mobility with FWW/ 4WW 2STE with B rails. Recommendations To Nursing Amount of Assist Needed Standby Assistance Discharge Recommendations PT Discharge Recommendations Home with Assistance, Outpatient PT Equipment Needed for Home Before pt does no have a FWW but 4WW. Discharge He might be able to use 4WW for mobility depends on his progress.) Transportation Needs at Discharge Private Vehicle
[2020-09-26] MEDS: carvediloL 12.5 MG TABLET 25 MG PO (20:07)
[2020-09-26] MEDS: DOCUSATE 100 MG CAPSULE PO (20:08)
[2020-09-26] MEDS: ASPIRIN EC 81 MG TABLET PO (20:08)
[2020-09-27] VITALS: BP 152/78; PULSE 67; RESP 18; TEMP 36.4; O2SAT 97
[2020-09-27 05:10] VITALS: BP 149/71; PULSE 86; RESP 18; TEMP 36.6; O2SAT 97
[2020-09-27 05:40] LABS: Hematocrit 32.8 % (41-53); Hemoglobin 11.4 g/dL (13.5-17.5)
[2020-09-27] MEDS: PANTOPRAZOLE 20 MG TABLET PO (06:25)
[2020-09-27] MEDS: SIMVASTATIN 40 MG TABLET PO (08:19)
[2020-09-27] MEDS: TERAZOSIN 5 MG CAPSULE 10 MG PO (08:19)
[2020-09-27] MEDS: DOCUSATE 100 MG CAPSULE PO (08:19)
[2020-09-27] MEDS: carvediloL 12.5 MG TABLET 25 MG PO (08:20)
[2020-09-27] MEDS: LOSARTAN 50 MG TABLET PO (08:20)
[2020-09-27] MEDS: MULTIVITAMIN 1 TABLET 1 TAB PO (08:20)
[2020-09-27] MEDS: FINASTERIDE 5 MG TABLET PO (08:20)
[2020-09-27] MEDS: FUROSEMIDE 20 MG TABLET PO (08:20)
[2020-09-27] MEDS: ACETAMINOPHEN 325 MG TABLET 975 MG PO (08:20)
--- NOTE | 2020-09-27 09:36 | PC.NURSE ---
Assess- Patient is doing well moving around with his walker, r.hip dressing cdi, will be changed before he goes home. Patient to work with physical therapy and then be discharged home.
--- NOTE | 2020-09-27 09:40 | PM.PNPO.1 ---
Subjective Subjective Date Patient Seen: 09/27/20 Time Patient Seen: 09:40 Interval history: POD #1 s/p Right JOVANNY with Dr. Braun. Patient is having no pain. He has not been up with PT yet. No complaints this AM. Exam Vital Signs (past 8 hours): - 09/27/20 05:10 Temperature 97.9 F Pulse Rate 86 Respiratory Rate 18 Blood Pressure 149/71 H Pulse Oximetry 97 Oxygen Delivery Method Room Air Oxygen Flow Rate 0 Narrative Exam Narrative: Patient sitting in bedside chair in NAD. He is alert and oriented X3. Calves are soft, compressible, and nontender bilaterally. SILT throughout BLEs. He is able to actively dorsiflex and plantarflex. DP pulses symmetrical. Objective Labs Result Diagrams: 09/27/20 05:27 Labs: Laboratory Results - last 24 hr 09/27/20 05:27 Hgb 11.4 L Hct 32.8 L PFSH Medical History Bladder cancer BPH (benign prostatic hyperplasia) CAD (coronary artery disease) Cardiomyopathy CHF (congestive heart failure) Colonic polyp Cyst Former smoker GERD (gastroesophageal reflux disease) HLD (hyperlipidemia) HTN (hypertension) Hyperbilirubinemia Myocardial infarct (~1995) Subclinical hyperthyroidism (~02/2014) Subclinical hypothyroidism Surgical History History of total left hip arthroplasty (07/04/19) Hx of appendectomy Hx of bilateral cataract extraction Hx of cardiac cath (06/15/19) Social History household members: spouse Smoking Status: Former smoker alcohol intake: former Assessment & Plan Post-op Postoperative Procedures: Procedures Operation Date: 09/26/20 09:45 Actual Procedures Side Surgeon p Total Hip Arthroplasty Right Jhonatan Braun MD Patient will mobilize with PT today. Follow posterior hip precautions. ASA for VTE prophylaxis. Provided [place] script in case of increase in pain. Likely DC home today.
--- NOTE | 2020-09-27 10:40 | PT.IPTN ---
Current Diagnoses Unilateral primary osteoarthritis, right hip (09/26/20) Surgery Performed Operation Date: 09/26/20 09:45 Actual Procedures p Total Hip Arthroplasty(Right) - Jhonatan Braun MD Physical Therapy Treatment Note M2 PT-IP Current Condition Start: 09/26/20 15:08 Freq: NEEDED Status: Active Protocol: Document 09/26/20 16:01 (Rec: 09/26/20 16:25 [email or web address]) Physical Therapy Current Condition Current Condition Evaluation Date 09/26/20 Treatment Diagnosis R JOVANNY (posterior approach), difficulty in walking Onset Date 09/26/20 Precautions Posterior Hip Precautions No Hip Flexion > 90 degrees,No Hip Internal Rotation,No Hip Adduction Weight Bearing Status Weight Bearing Status Weight Bear as Tolerated M3 PT-IP Subjective Start: 09/26/20 15:08 Freq: NEEDED Status: Active Protocol: Document 09/27/20 10:01 DES (Rec: 09/27/20 10:39 DES [id number]) Subjective Physical Therapy Visit Type Type Treatment Note Visit Start Time 10:01 Visit Stop Time 10:18 Total Visit Minutes 17 Notes attended session Number of ELECTRICAL TECHNOLOGY INSTRUCTOR Visits 1 Physical Therapy Visit Comments Patient Comments I'm more comfortable using my 4WW Therapy Pain Assessment Pain Present Pain Present Denied Pain M4 PT-IP Mobility and Gait Start: 09/26/20 15:08 Freq: NEEDED Status: Active Protocol: Document 09/27/20 10:01 DES (Rec: 09/27/20 10:39 LJ [id number]) PT-Transfer Assessment Sit to and From Stand Sit to and from Stand Standby Assistance,Use of Upper Extremities Equipment Transfer Assistive Device Gait Belt,4 Wheeled Walker Orthotic/Prosthetic Devices or Brace: No Transfers Transfer Destination Chair Transfer Technique Stand Step Pivot Transfer Ability Level of Assist Standby Assistance,1 Person Assistance,Use of Upper Extremities Comments Mobility Comments Pt sitting in chair upon arrival. in room. Pt scooted forward in chair and stood using arm rests with RLE extended to avoid >90 degree flexion. Pt ambulated using 4WW into hallway and to stairs SBA. Demonstrated good gait mechanics and safe use of 4WW. Pt went up/down stairs x2 stepping down with LLE one time during which he felt a slight twinge but otherwise was ok. No LOB or hesitation. Cued second time to use advance RLE on descent. Pt complied second trial. Ambulated back to room where nurse met him for bandage change. Left in room with nursing. Gait Assessment Gait Gait Assistance Required: Standby Assistance Distance (Feet) 150 Able to Maintain Weight Bearing Status Yes During Gait Assistive Devices Assistive Device Gait Belt,4 Wheeled Walker Gait Deviations General Gait Pattern Decreased Stride Length, Decreased Feet Clearance Factors Limiting Gait Function Factors Limiting Gait Function Decreased Activity Tolerance, Decreased Strength,Limited Range of Motion Comments Gait Comments see mobility comments. Stair Climbing Assessment Technique/Endurance Stair Climbing Direction Ascend and Descend Stair Climbing Technique Step to Step Number of Steps Climbed 3 Stair Climbing Set # Repetitions (reps) 2 Comments Stair Climbing Comments see mobility comments M5 PT-IP Objective Assessments Start: 09/26/20 15:08 Freq: NEEDED Status: Active Protocol: Document 09/26/20 16:01 (Rec: 09/26/20 16:25 [email or web address]) Orientation Orientation/Cognition Level of Alertness Alert Orientation Name,Age,Birthday,Month,Date, Year,Day of Week,Place, Situation Language Function Ability No Deficits Noted Safety Awareness Understands Safety Issues Memory Description No Deficits Noted Gross Range of Motion Upper Extremity ROM Assessment Within Functional Limits Lower Extremity ROM Assessment Right Impaired Strength Upper Extremity Strength Assessment Within Functional Limits Lower Extremity Strength Assessment Right Impaired Hip 4-/5 Knee 4+/5 Coordination Assessment Gross Coordination Gross Coordination WNL Sensation Assessment Sensation Gross Sensation WNL Muscle Tone Muscle Tone WNL Yes M6 PT-IP Treatment Start: 09/26/20 15:08 Freq: NEEDED Status: Active Protocol: Document 09/27/20 10:01 DES (Rec: 09/27/20 10:39 [id number]) Physical Therapy Treatment Education Education Provided Precautions,Safety M7 PT-IP Assessment and Plan Start: 09/26/20 15:08 Freq: NEEDED Status: Active Protocol: Document 09/27/20 10:01 DES (Rec: 09/27/20 10:39 DES [id number]) PT Summary Assessment and Plan Potential Rehabilitation Potential Excellent Status of Condition at Evaluation Stable Summary Impairments Pain,ROM,Strength,Balance,Bed Mobility,Transfers,Gait, Activity Tolerance Progress Towards Goals Safe For Discharge,Goals Met Assessment Summary Pt is safe using 4WW and has completed stair training. He has met goals and is safe for discharge at this time. Goals Bed Mobility Goal Standby Assistance Transfer Goal Standby Assistance,Front Wheeled Walker,Four Wheeled Walker Gait Goal Standby Assistance,Front Wheel Walker,Four Wheel Walker Gait Distance 200 Other Goals 2 MAGALY with B rails Days to Meet Goals 3 Frequency of Treatment Frequency Of Treatment Twice a Day Treatment Plan Physical Therapy Treatment Plan Bed Mobility Training,Transfer Training,Gait Training, Therapeutic Exercise,Balance Retraining,Post Op Education, Discharge Planning,Hot or Cold Pack,Neuromuscular Re-ed Other Recommendations and Next Treatment vitals (pt has high BP) Focus mobility with FWW/ 4WW 2STE with B rails. Recommendations To Nursing Amount of Assist Needed Standby Assistance Discharge Recommendations PT Discharge Recommendations Home with Assistance, Outpatient PT Transportation Needs at Discharge Private Vehicle
--- NOTE | 2020-09-27 11:39 | CM.IDA ---
Initial DCP Assessment Note Pt is a 80 yo male, resident of [place], POD #1 s/p Right JOVANNY with Dr. Braun PCP: Ana Mendoza Payer: P[employer] Reviewed chart, pt discussed in multidisciplinary rounds this morning. Therapy has cleared pt for return home w/family to assist and pt has planned for home, DC order from Ortho has already been initiated this morning. No needs expected from DC planning team although will remain available in case this changes today. BLADIMIR Pineda Discharge Planning/Care Management CM Discharge Assessment Start: 09/27/20 11:24 Freq: Status: Active Protocol: Document 09/27/20 11:25 ANETTE (Rec: 09/27/20 11:39 [id number]) Discharge Planning Assessment Assigned Advanced Manager BLADIMIR Claire DPOA/Assigned Designee Name Radha Koroma, spouse Contact Information [phone], cell Advance Directives? Yes Advance Directives on File No History Provided By Patient,Medical Record Prior Living Arrangements House Household Members spouse Type of transporation used prior to Drives own vehicle admit Independent with ADL's Yes Is patient alert and oriented? Yes Comment Had not used a walker before surgery Patient/Family Preference OP PT Therapy Barriers to Discharge No Discharge Plan Home Transportation Arrangement Spouse Referrals Initiated None needed
== END 2020-09-27 10:45 | disposition home or self-care (01) ==
LOC: OR 08:16 → AC 08:17
PROVIDERS: PCP Internal Medicine; Referring Provider Internal Medicine; Visit Provider Orthopaedic Surgery
PROC: 0SR90JZ Replacement of Right Hip Joint with Synthetic Substitute, Open Approach (ICD-10-PCS; CPT 27130; principal; 2020-09-26 09:45)
DX: M16.11 Unilateral primary osteoarthritis, right hip (principal); I25.2 Old myocardial infarction; I10 Essential (primary) hypertension; I25.10 Atherosclerotic heart disease of native coronary artery without angina pectoris
CPT/HCPCS: 27130; 36415; 72170; 85014; 85018; 97116; 97161; C1776; J0690; J1100; J1885; J2270; J2274; J2405; J2704

== ENCOUNTER → 2021-12-25 09:30 | Outpatient (CLI) | payer MEDICARE, OTHER, SELFPAY ==
[2020-09-26 13:18] VITALS: BMI 35.9
[2021-12-25 10:59] LABS: COVID19 -Nasal RAPID Negative (Negative)
== END ==
PROVIDERS: PCP Internal Medicine; Visit Provider Surgery
DX: Z01.812 Encounter for preprocedural laboratory examination (principal); Z20.822 Contact with and (suspected) exposure to COVID-19
CPT/HCPCS: 87635; C9803

== ENCOUNTER 2021-12-26 10:11 | Day surgery (SDC) | payer MEDICARE, OTHER, SELFPAY ==
[2020-09-26 13:18] VITALS: BMI 35.9
[2021-12-26] VITALS (7 sets, daily range): BP systolic 111–153; BP diastolic 61–84; PULSE 51–84; RESP 12–20; TEMP 36.2–36.3; O2SAT 91–95; BMI 34.4
--- NOTE | 2021-12-26 | PATH_ITS ---
[facility] Accession Number: [id number] No. of containers..04 Tissue . 01 Material submitted: . PART A: colon - ASCENDING COLON POLYPS PART B: cecum - CECAL POLYP PART C: sigmoid colon - SIGMOID POLYP PART D: rectum - RECTAL POLYP . 02 Diagnosis: A. Ascending Colon Polyps, Biopsies: Fragments of tubular adenoma. . B. Cecal Polyp, Biopsy: Tubular adenoma. . C. Sigmoid Colon Polyp, Biopsy: Inflammatory polyp. . D. Rectal Polyp, Biopsy: Hyperplastic polyp. [facility] 12/30/2021 1142 Local . 02 Electronically signed: . Genaro Guerra MD, PhD, Pathologist NPI- [id number] . 01 Gross description: . Part A: ASCENDING COLON POLYPS: Received in formalin are 3 fragment(s) of [place], soft tissue measuring 0.9 x 0.4 x 0.4 cm to 0.4 x 0.3 x 0.2 cm submitted entirely in 1 cassette(s) Part B: CECAL POLYP: Received in formalin is 1 fragment(s) of [place], soft tissue measuring 0.5 x 0.4 x 0.4 cm submitted entirely in 1 cassette(s) Part C: SIGMOID POLYP: Received in formalin are 2 fragment(s) of [place], soft tissue measuring 0.3 x 0.2 x 0.1 cm to 0.2 x 0.1 x 0.1 cm submitted entirely in 1 cassette(s) Part D: RECTAL POLYP: Received in formalin is 1 fragment(s) of [place], soft tissue measuring 0.4 x 0.3 x 0.2 cm submitted entirely in 1 cassette(s) /[facility] 12/28/2021 1558 Local . 02 Pathologist provided ICD-10: D12.2, D12.0, K62.1, K51.40 . 02 CPT . 309925, 850539, 392591, 301191 Specimen Comment: A courtesy copy of this report has been sent to [phone] Performed at: 01 [facility] [address] [id number] MD Yordan Jenkins MD Phone: [phone] Performed at: 02 [facility] [id number] [place] [id number] MD Tanja Grady MD Phone: [phone]
[2021-12-26] MEDS: LACTATED RINGERS 1,000 ML 42 ML IV (10:44)
--- NOTE | 2021-12-26 11:48 | PM.HP.1 ---
History of Present Illness History of Present Illness Date Patient Seen: 12/26/21 Time Patient Seen: 11:48 Chief complaint: SDC Narrative: Mele is an 81-year-old man who had a colonoscopy 5 years ago with polyps found. He is here for his interval colonoscopy. Patient History Medical History (Updated 12/26/21 @ 11:48 by Ricky Ray MD) Bladder cancer BPH (benign prostatic hyperplasia) CAD (coronary artery disease) Cardiomyopathy CHF (congestive heart failure) Colonic polyp Cyst Former smoker GERD (gastroesophageal reflux disease) HLD (hyperlipidemia) HTN (hypertension) Hyperbilirubinemia Myocardial infarct (~1995) Subclinical hyperthyroidism (~02/2014) Subclinical hypothyroidism Surgical History (Updated 12/26/21 @ 10:32 by Lisa Funk RN) History of total left hip arthroplasty (07/04/19) Hx of appendectomy Hx of bilateral cataract extraction Hx of cardiac cath (06/15/19) Family & Social History Social History: household members spouse Tobacco & Substance use: Tobacco type cigarettes,cigars Smoking Status Former smoker alcohol intake current alcohol intake frequency 0-2 drinks per day Substance Use Type does not use Meds Home Medications and Allergies Home Medications Medication Instructions Recorded Confirmed Type carvedilol 25 mg tablet 25 mg PO BID 06/29/19 12/26/21 History finasteride 5 mg tablet 5 mg PO DAILY 06/29/19 12/26/21 History fluticasone propionate 50 1 spray INTRANASAL DIRECTED 06/29/19 12/26/21 History mcg/actuation nasal spray,suspension furosemide 20 mg tablet 20 mg PO DAILY 06/29/19 12/26/21 History losartan 50 mg tablet 50 mg PO SEEINSTR 06/29/19 12/26/21 History multivitamin 1 cap PO DAILY 06/29/19 12/26/21 History omeprazole 20 mg tablet,delayed 20 mg PO DAILY 06/29/19 12/26/21 History release simvastatin 40 mg tablet 40 mg PO DAILY 06/29/19 12/26/21 History terazosin 10 mg capsule 10 mg PO DAILY 06/29/19 12/26/21 History aspirin 81 mg tablet,delayed 81 mg PO BID #0 tab 09/27/20 12/26/21 Rx release Allergies Allergy/AdvReac Type Severity Reaction Status Date / Time tramadol Allergy Intermediate ITCH Verified 12/26/21 10:11 spironolactone AdvReac Severe Enlarged Verified 12/26/21 10:11 breasts with hard lumps lisinopril AdvReac Intermediate Cough Verified 12/26/21 10:11 Exam Vital Signs (past 8 hours): - 12/26/21 10:32 Temperature 97.2 F L Pulse Rate 84 Respiratory Rate 20 Blood Pressure 144/84 H Pulse Oximetry 95 Oxygen Delivery Method Room Air Const General: healthy appearing Resp Effort & Inspection: normal respiratory effort GI Palpation: soft Assessment & Plan Assessment and plan (1) History of colon polyps: Status: Acute Plan 81-year-old man with a history of colon polyps who is here for his interval colonoscopy. We reviewed the risks benefits any would like to proceed. COVID-19 COVID-19 status: Negative Result date/Date tested (Pos, Neg/Pending): 12/25/21 Time Spent With Patient Critical Care time: I spent a total of [] minutes of critical care time on this patient's care today; this time is exclusive of procedural time.
[2021-12-26] MEDS: MIDAZOLAM 5 MG/5 ML VIAL IV (11:52)
[2021-12-26] MEDS: fentaNYL 250 MCG/5 ML INJ IV (11:52)
--- NOTE | 2021-12-26 12:39 | PM.OP.COLON ---
Operative Date/Time/Diagnoses Date of procedure: 12/26/21 Time of procedure: 12:40 Pre-op diagnosis: History of colon polyps Post-op diagnosis: same Procedure & Clinicians Study performed: Colonoscopy Surgeon: Ricky Ray Procedure Notes Procedure in detail: Procedure: The patient was brought to the endoscopy suite, placed in left lateral decubitus position. The patient was connected to monitoring devices. A time-out was performed. Sedation was administered. Once the patient was adequately sedated, a digital rectal exam was performed and was normal. The scope was then inserted and advanced to the cecum where the appendiceal orifice was identified and photographed. The scope was then slowly withdrawn over greater than 6 minutes. Mucosa was thoroughly inspected. There was a 5 mm polyp in the cecum removed with hot snare. There were 3 5 mm polyps in the ascending colon removed with hot and cold snare. There were scattered diverticula in the sigmoid colon. There was a small sigmoid polyp removed with forceps. There was a 7 mm flat rectal polyp removed with cold snare. The scope was retroflexed in the rectum. There were hemorrhoids but no other lesions. The scope was straightened and removed. The patient was awakened and brought to recovery. Versed: 7 mg Fentanyl: 175 mcg EBL: 10 mL Findings: Polyps in the cecum, ascending colon, sigmoid colon and rectum. Scattered sigmoid diverticula. Scope withdrawal time: 38 Sedation minutes: 42 Post-procedure Recommendations: Will call with biopsy results Disposition: PACU
== END 2021-12-26 13:24 | disposition home or self-care (01) ==
PROVIDERS: PCP Internal Medicine; Referring Provider Surgery; Visit Provider Surgery
PROC: 0DJD8ZZ Inspection of Lower Intestinal Tract, Via Natural or Artificial Opening Endoscopic (ICD-10-PCS; CPT 45378; principal; 2021-12-26 11:30)
DX: Z12.11 Encounter for screening for malignant neoplasm of colon (principal); Z86.010 Personal history of colon polyps; D12.2 Benign neoplasm of ascending colon; D12.0 Benign neoplasm of cecum; D12.5 Benign neoplasm of sigmoid colon; K62.1 Rectal polyp
CPT/HCPCS: 45385; 45380; 99152; 99153; J2250; J3010

== ENCOUNTER 2023-01-19 10:04 | Emergency (ER) | payer MEDICARE, OTHER, SELFPAY ==
[2020-09-26 13:18] VITALS: BMI 35.9
[2023-01-19] VITALS (27 sets, daily range): BP systolic 148–217; BP diastolic 73–135; PULSE 59–83; RESP 12–29; TEMP 36.7; O2SAT 95–98; BMI 35.2
--- NOTE | 2023-01-19 10:14 | DI.RAD.S_ITS ---
PROCEDURE: XR CHEST 1V INDICATIONS: Possible stroke TECHNIQUE: One view of the chest was acquired. COMPARISON: None. FINDINGS: Surgical changes and devices: None. Lungs and pleura: On this semiupright portable chest examination, no large pneumothorax or large pleural effusions are seen. No focal infiltrates are seen. Low lung volumes are noted. This causes a crowded appearance to the lung markings and limits evaluation. Mediastinum: Mediastinal contours appear normal. Heart size is normal. Bones and chest wall: No suspicious bony lesions. Age-appropriate bony degenerative changes are seen. Overlying soft tissues appear unremarkable. IMPRESSION: Limited portable chest examination, without a significant cardiopulmonary abnormality identified. Dictated by: Hayes Zamora M.D. on 01/19/2023 at 9:41 Approved by: Hayes Zamora M.D. on 01/19/2023 at 9:42
--- NOTE | 2023-01-19 10:21 | DI.CT.S_ITS ---
PROCEDURE: CT HEAD/BRAIN WO CON INDICATIONS: dizziness, woke w/ symptoms TECHNIQUE: Noncontrast 4.5 mm thick angled axial sections acquired from the foramen magnum to the vertex, with coronal and sagittal reformats. For radiation dose reduction, the following was used: automated exposure control, adjustment of mA and/or kV according to patient size. COMPARISON: None. FINDINGS: Image quality: Excellent. CSF spaces: Basal cisterns are patent. No extra-axial fluid collections. The ventricles are symmetric in size and shape. Brain: No intracranial bleeds or masses. There is cerebral volume loss for age, with resultant ventricular and sulcal prominence. There are periventricular and deep white matter chronic small vessel ischemic changes. There is intracranial internal carotid artery atherosclerosis. Skull and face: Calvarium and visualized facial bones appear intact, without suspicious lesions. Sinuses: Visualized sinuses and mastoids are clear. IMPRESSION: No evidence acute intracranial process. Dictated by: Shay Harper M.D. on 01/19/2023 at 11:41 Approved by: Shay Harper M.D. on 01/19/2023 at 11:42
--- NOTE | 2023-01-19 10:27 | DI.CT.S_ITS ---
PROCEDURE: CT ANGIO HEAD AND NECK INDICATIONS: dizziness, woke w/ symptoms TECHNIQUE: After the administration of intravenous contrast, 1 mm thick sections acquired from the aortic arch through the [place] of [place]. Post-contrast 4.5 mm thick sections then re-acquired from the foramen magnum to the vertex. 3-dimensional jltivhm-eecokcxis-yucvmdpity (MIP) and/or volume rendering reformats were acquired of the central intracranial vasculature and neck separately. For radiation dose reduction, the following was used: automated exposure control, adjustment of mA and/or kV according to patient size. COMPARISON: None. FINDINGS: Image quality: Excellent. BRAIN: CSF spaces: Ventricles are normal in size and shape. Basal cisterns are patent. No extra-axial fluid collections. Brain: No midline shift. No intracranial bleeds or masses. Wolfe-white matter interface appears intact. Skull and face: Calvarium and facial bones appear intact, without suspicious lesions. Orbits appear normal. Sinuses: Mild bilateral maxillary sinus mucosal thickening and patchy bilateral ethmoid disease consistent with chronic sinusitis. HEAD CT ANGIOGRAPHY: Anterior circulation: Intracranial internal carotid arteries are normal in size and flow. The flow within the paired anterior cerebral arteries is normal and symmetric. The flow within the middle cerebral arteries is normal and symmetric. The anterior communicating artery is seen. No aneurysms are seen. Posterior circulation: Visualized portions of the vertebral arteries demonstrate normal caliber, and join to form a normal appearing basilar artery. Flow within the posterior cerebral arteries is normal and symmetric. No aneurysms are seen. NECK CT ANGIOGRAPHY: Carotid system: The great vessels demonstrate a conventional anatomy as they arise from the aortic arch. 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 The origins of the common carotid arteries appear patent. The common carotid arteries demonstrate normal caliber and courses. The bifurcation regions are both widely patent. The internal carotid arteries demonstrate normal calibers and courses. Posterior circulation: The origins of the vertebral arteries both appear widely patent. The more superior extracranial portions of both vertebral arteries also demonstrate normal courses and calibers. They join to form a normal appearing basilar artery. Soft tissues: Visualized neck soft tissues demonstrate no suspicious abnormalities. Bones: No suspicious bony lesions. Visualized cervical spine appears normally aligned. IMPRESSION: 1. No evidence acute intracranial process. 2. Mild chronic sinus disease. 3. Unremarkable CTA head. No stenosis, aneurysm, occlusion, or focal filling defect. 4. Widely patent carotids and vertebral arteries. 5. 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 Comment: Recommend follow-up CT in 12 months to document stability of the size of the ascending aorta. Any quantitative measurements of stenosis were performed using NASCET criteria. Dictated by: Shay Harper M.D. on 01/19/2023 at 11:42 Approved by: Shay Harper M.D. on 01/19/2023 at 11:48
[2023-01-19 10:32] LABS: Add Manual Diff / Slide Review NO; Basophils Absolute Auto 100 /uL (0-100); Basophils Percent Auto 1.3 % (0-2); Eosinophils Absolute Auto 300 /uL (0-450); Eosinophils Percent Auto 5.3 % (2-4); Hematocrit 40.1 % (41-53); Hemoglobin 14.2 g/dL (13.5-17.5); Lymphocytes Absolute Auto 1100 /uL (1100-4500); Lymphocytes Percent Auto 17.4 % (25-40); Mean Corpuscular HGB Conc 35.2 % (30-36); Mean Corpuscular Hemoglobin 33.2 PG (26-34); Mean Corpuscular Volume 94.3 fL (80-100); Monocytes Absolute Auto 500 /uL (0-900); Monocytes Percent Auto 8.1 % (3-14); Neutrophils Absolute Auto 4300 /uL (1500-7000); Neutrophils Percent Auto 67.9 % (50-75); Platelet Count 136 X10^3/uL (150-400); Red Blood Cell Count 4.26 X10^6/uL (4.5-5.9); Red Cell Distribution Width 12.6 % (11.6-14.8); White Blood Cell Count 6.3 X10^3/uL (4.5-11.0)
[2023-01-19 10:39] LABS: PTT Partial Thromboplastin Tim 29 SECONDS (26-36)
[2023-01-19 10:41] LABS: Alanine Aminotransferase 27 IU/L (<50); Albumin 4.5 g/dL (3.5-5.0); Albumin Globulin Ratio 1.4 (1.0-2.8); Alkaline Phosphatase 101 U/L (38-126); Aspartate Aminotransferase 29 IU/L (17-59); BUN Creatinine Ratio 18.5 (6-22); Bilirubin Total 0.9 mg/dL (0.2-1.3); Blood Urea Nitrogen 15 mg/dL (9-20); Calcium 8.8 mg/dL (8.4-10.2); Carbon Dioxide 30 mmol/L (22-32); Chloride 104 mmol/L (98-107); Creatine Kinase 120 U/L (55-170); Estimated Glomerular Filt Rate > 60 mL/min (>60); Globulin 3.2 g/dL (1.7-4.1); Glucose 104 mg/dL (80-110); HEMOLYSIS < 15 (0-50); Magnesium 2.2 mg/dL (1.6-2.3); Potassium 3.8 mmol/L (3.4-5.1); Sodium 142 mmol/L (137-145); Total Protein 7.7 g/dL (6.3-8.2)
[2023-01-19] MEDS: ONDANSETRON 4 MG/2 ML INJ IV (10:46)
[2023-01-19] MEDS: MECLIZINE HCL 12.5 MG TABLET 25 MG PO (10:46)
--- NOTE | 2023-01-19 10:46 | ED_ITS ---
HPI - Neuro Symptoms/Deficit General Chief Complaint: Neuro Symptoms/Deficit Stated Complaint: get dizzy when moving around Time Seen by Provider: 01/19/23 10:38 Source: patient Mode of arrival: Wheelchair History of Present Illness HPI Narrative: Patient is a 82-year-old male history of coronary artery disease, hypertension, hyperlipidemia presenting today with sudden onset of dizziness. He said he was in his normal state of health yesterday went to sleep this morning when he woke up he said the size of bed and felt extremely dizzy. He denies nausea or vomiting. Noted to be quite hypertensive. Denies numbness tingling or weakne ss. No chest pain or palpitations. No prior history of vertigo. He denies any fever or chills. On Anticoagulants: Yes (ASA 81 mg daily) Related Data Home Medications Medication Instructions Recorded Confirmed carvedilol 25 mg tablet 25 mg PO BID 06/29/19 01/19/23 finasteride 5 mg tablet 5 mg PO DAILY 06/29/19 01/19/23 fluticasone propionate 50 1 spray intranasal DIRECTED 06/29/19 01/19/23 mcg/actuation nasal spray,suspension furosemide 20 mg tablet 20 mg PO DAILY 06/29/19 01/19/23 losartan 50 mg tablet 50 mg PO SEEINSTR 06/29/19 01/19/23 multivitamin 1 cap PO DAILY 06/29/19 01/19/23 omeprazole 20 mg tablet,delayed 20 mg PO DAILY 06/29/19 01/19/23 release terazosin 10 mg capsule 10 mg PO DAILY 06/29/19 01/19/23 amlodipine 5 mg tablet 2.5 mg PO DAILY 01/19/23 01/19/23 aspirin 81 mg tablet,delayed 81 mg PO DAILY 01/19/23 01/19/23 release atorvastatin 20 mg tablet 20 mg PO DAILY 01/19/23 01/19/23 Previous Rx's Medication Instructions Recorded cephalexin 500 mg capsule 500 mg PO BID 7 days #14 caps 01/19/23 meclizine 25 mg tablet 25 mg PO TID PRN dizziness #10 tabs 01/19/23 Allergies Allergy/AdvReac Type Severity Reaction Status Date / Time tramadol Allergy Intermediate ITCH Verified 01/19/23 10:14 spironolactone AdvReac Severe Enlarged Verified 01/19/23 10:14 breasts with hard lumps lisinopril AdvReac Intermediate Cough Verified 01/19/23 10:14 Review of Systems Review of Systems ROS Unobtainable: All systems reviewed & are unremarkable except as noted in HPI and below Hematologic/Lymphatic On Anticoagulants: Yes (ASA 81 mg daily) Patient History Medical History Bladder cancer BPH (benign prostatic hyperplasia) CAD (coronary artery disease) Cardiomyopathy CHF (congestive heart failure) Colonic polyp Cyst Former smoker GERD (gastroesophageal reflux disease) HLD (hyperlipidemia) HTN (hypertension) Hyperbilirubinemia Myocardial infarct (~1995) Subclinical hyperthyroidism (~02/2014) Subclinical hypothyroidism Surgical History History of total left hip arthroplasty (07/04/19) Hx of appendectomy Hx of bilateral cataract extraction Hx of cardiac cath (06/15/19) Social History household members: spouse Smoking Status: Former smoker alcohol intake: current Smoking Status: Former smoker alcohol intake frequency: 0-2 drinks per day Substance Use Type: does not use Exam Initial Vital Signs Initial Vital Signs: Vital Signs Temperature 98.1 F 01/19/23 10:11 Pulse Rate 82 01/19/23 10:11 Respiratory Rate 16 01/19/23 10:11 Blood Pressure 217/95 H 01/19/23 10:11 Pulse Oximetry 97 01/19/23 10:11 Oxygen Delivery Method Room Air 01/19/23 10:11 GENERAL: Alert 82-year-old male HEENT: Head atraumatic,EOMI, pupils reactive, left eye nystagmus towards the left, face symmetric CARDIOVASCULAR: Regular rate and rhythm without murmurs, rubs or gallops. RESPIRATORY: Breath sounds equal bilaterally, no wheezes rales or rhonchi. ABDOMEN: Soft, nontender. Normoactive bowel sounds all 4 quadrants. No g uarding or rebound. EXTREMITIES: Normal range of motion, no clubbing or edema. Neurovascularly inta ct NEUROLOGICAL: Alert and oriented x4.Normal gait and speech. Cranial nerves II through XII grossly intact. Good [id number], good [id number], strength equal bilaterally, no dysarthria or aphasia, sensation in tact to soft touch bilaterally, no visual changes, no facial droop both legs slightly drift to the bed but patient reports cramping in quadriceps in both legs, no abnormal [id number]-[id number] SKIN: Warm, dry, no laceration, no petechiae, no rashes or lesions. Scores NIH Stroke Scale Level of Conciousness: Alert, keenly responsive Ask month/age: Answers both questions correctly. Open/close eyes, close hand: Performs both tasks correctly Best gaze horizontal: Normal Visual cristobal: No visual loss Facial palsy: Normal symetrical movement Left arm drift: No drift for full 10 sec Right arm drift: No drift for full 10 sec Left leg drift: No drift for full 5 sec Right leg drift: No drift for full 5 sec Limb ataxia: Absent Sensory on face/arms/legs: Normal, no sensory loss Best language: No aphasia, normal Dysarthria: Normal Extinction or inattention: No abnormality Total NIH Stroke scale score: 0 Course Orders Ordered: ED Orders 01/19/23 12:31 Urine Drug Screen, Rapid Stat Urine Microscopic Stat 01/19/23 14:15 Urine Culture Stat Discontinued Medications Lorazepam (Lorazepam 2 Mg/Ml Inj) 0.5 mg IV NOW ONE Stop: 01/19/23 12:58 Last Admin: 01/19/23 13:35 Dose: 0.5 mg Documented By: SPIKE Meclizine HCl (Meclizine Hcl 12.5 Mg Tablet) 25 mg PO NOW ONE Stop: 01/19/23 10:39 Last Admin: 01/19/23 10:46 Dose: 25 mg Documented By: SPIKE Ondansetron HCl (Ondansetron 4 Mg Odt) 4 mg SL NOW PRN PRN Reason: Nausea And Vomiting Ondansetron HCl (Ondansetron 4 Mg/2 Ml Inj) 4 mg IV NOW PRN PRN Reason: Nausea And Vomiting Ondansetron HCl (Ondansetron 4 Mg/2 Ml Inj) 4 mg IV NOW ONE Stop: 01/19/23 10:39 Last Admin: 01/19/23 10:46 Dose: 4 mg Documented By: RB Vital Signs Vital signs: Vital Signs - 8 hr 01/19/23 12:15 01/19/23 12:15 01/19/23 12:30 Pulse Rate 59 L 61 Respiratory Rate 12 14 Blood Pressure 167/77 H Pulse Oximetry 96 96 Oxygen Delivery Method 01/19/23 12:31 01/19/23 12:31 01/19/23 12:45 Pulse Rate 69 67 Respiratory Rate 15 15 Blood Pressure 188/77 H Pulse Oximetry 96 96 Oxygen Delivery Method 01/19/23 12:46 01/19/23 12:46 01/19/23 13:00 Pulse Rate 66 68 Respiratory Rate 14 16 Blood Pressure 148/73 H Pulse Oximetry 96 96 Oxygen Delivery Method 01/19/23 13:01 01/19/23 13:01 01/19/23 13:15 Pulse Rate 67 Respiratory Rate 14 Blood Pressure 169/79 H 174/82 H Pulse Oximetry 96 Oxygen Delivery Method 01/19/23 13:15 01/19/23 13:30 01/19/23 13:30 Pulse Rate 59 L 62 Respiratory Rate 20 16 Blood Pressure 160/79 H Pulse Oximetry 97 96 Oxygen Delivery Method 01/19/23 13:45 01/19/23 13:46 01/19/23 13:46 Pulse Rate 67 70 Respiratory Rate 22 21 Blood Pressure 169/87 H Pulse Oximetry 95 95 Oxygen Delivery Method 01/19/23 14:00 01/19/23 14:00 01/19/23 14:08 Pulse Rate 59 L 61 Respiratory Rate 18 16 Blood Pressure 159/75 H Pulse Oximetry 95 96 Oxygen Delivery Method Room Air 01/19/23 14:08 01/19/23 14:15 Pulse Rate 68 Respiratory Rate 16 Blood Pressure 181/95 H Pulse Oximetry 96 Oxygen Delivery Method MDM - Neuro Symptoms/Deficit Lab Data 01/19/23 10:20 01/19/23 10:20 Labs: Lab Results 01/19/23 01/19/23 01/19/23 Range/Units 10:20 10:20 10:20 WBC 6.3 (4.5-11.0) X10^3/uL RBC 4.26 L (4.5-5.9) X10^6/uL Hgb 14.2 (13.5-17.5) g/dL Hct 40.1 L (41-53) % MCV 94.3 (80-100) fL MCH 33.2 (26-34) PG MCHC 35.2 (30-36) % RDW 12.6 (11.6-14.8) % Plt Count 136 L (150-400) X10^3/uL Neut % (Auto) 67.9 (50-75) % Lymph % (Auto) 17.4 L (25-40) % [place] % (Auto) 8.1 (3-14) % Eos % (Auto) 5.3 H (2-4) % Baso % (Auto) 1.3 (0-2) % Neut # (Auto) 4300 (2233-0508) /uL Lymph # (Auto) 1100 (7520-9911) /uL [place] # (Auto) 500 (0-900) /uL Eos # (Auto) 300 (0-450) /uL Baso # (Auto) 100 (0-100) /uL PT 12.0 (10.1-12.7) SECONDS INR 1.0 (0.9-1.3) APTT 29 (26-36) SECONDS Sodium 142 (137-145) mmol/L Potassium 3.8 (3.4-5.1) mmol/L Chloride 104 (98-107) mmol/L Carbon Dioxide 30 (22-32) mmol/L BUN 15 (9-20) mg/dL Creatinine 0.81 (0.66-1.25) mg/dL Estimated GFR > 60 (>60) mL/min BUN/Creatinine Ratio 18.5 (6-22) Glucose 104 (80-110) mg/dL Calcium 8.8 (8.4-10.2) mg/dL Magnesium 2.2 (1.6-2.3) mg/dL Total Bilirubin 0.9 (0.2-1.3) mg/dL AST 29 (17-59) IU/L ALT 27 (<50) IU/L Alkaline Phosphatase 101 (38-126) U/L Total Creatine Kinase 120 (55-170) U/L CK-MB (CK-2) 2.22 (<2.37) ng/mL CK-MB (CK-2) Rel Index 1.9 (1.5-5.0) % Troponin I < 0.012 (0.01-0.034) ng/mL Total Protein 7.7 (6.3-8.2) g/dL Albumin 4.5 (3.5-5.0) g/dL Globulin 3.2 (1.7-4.1) g/dL Albumin/Globulin Ratio 1.4 (1.0-2.8) Urine RBC (0-5/HPF) Urine WBC (0-5/HPF) Amorphous Sediment Urine Bacteria (None) U Opiates 300ng/mL cut (Negative) Ur Oxycodone Screen (Negative) Urine Methadone Screen (Negative) Ur Barbiturates Screen (Negative) U Tricyclic Antidepress (Negative) Ur Phencyclidine Scrn (Negative) Ur Amphetamines Screen (Negative) U Methamphetamines Scrn (Negative) Ur MDMA Scrn (Ecstasy) (Negative) U Benzodiazepines Scrn (Negative) Urine Cocaine Screen (Negative) U Marijuana (THC) Screen (Negative) 01/19/23 01/19/23 Range/Units 12:31 12:31 WBC (4.5-11.0) X10^3/uL RBC (4.5-5.9) X10^6/uL Hgb (13.5-17.5) g/dL Hct (41-53) % MCV (80-100) fL MCH (26-34) PG MCHC (30-36) % RDW (11.6-14.8) % Plt Count (150-400) X10^3/uL Neut % (Auto) (50-75) % Lymph % (Auto) (25-40) % [place] % (Auto) (3-14) % Eos % (Auto) (2-4) % Baso % (Auto) (0-2) % Neut # (Auto) (3142-2957) /uL Lymph # (Auto) (9320-6728) /uL [place] # (Auto) (0-900) /uL Eos # (Auto) (0-450) /uL Baso # (Auto) (0-100) /uL PT (10.1-12.7) SECONDS INR (0.9-1.3) APTT (26-36) SECONDS Sodium (137-145) mmol/L Potassium (3.4-5.1) mmol/L Chloride (98-107) mmol/L Carbon Dioxide (22-32) mmol/L BUN (9-20) mg/dL Creatinine (0.66-1.25) mg/dL Estimated GFR (>60) mL/min BUN/Creatinine Ratio (6-22) Glucose (80-110) mg/dL Calcium (8.4-10.2) mg/dL Magnesium (1.6-2.3) mg/dL Total Bilirubin (0.2-1.3) mg/dL AST (17-59) IU/L ALT (<50) IU/L Alkaline Phosphatase (38-126) U/L Total Creatine Kinase (55-170) U/L CK-MB (CK-2) (<2.37) ng/mL CK-MB (CK-2) Rel Index (1.5-5.0) % Troponin I (0.01-0.034) ng/mL Total Protein (6.3-8.2) g/dL Albumin (3.5-5.0) g/dL Globulin (1.7-4.1) g/dL Albumin/Globulin Ratio (1.0-2.8) Urine RBC None seen (0-5/HPF) Urine WBC 5-10/hpf H (0-5/HPF) Amorphous Sediment 1+ Urine Bacteria Many (>30) H (None) U Opiates 300ng/mL cut Negative (Negative) Ur Oxycodone Screen Negative (Negative) Urine Methadone Screen Negative (Negative) Ur Barbiturates Screen Negative (Negative) U Tricyclic Antidepress Negative (Negative) Ur Phencyclidine Scrn Negative (Negative) Ur Amphetamines Screen Negative (Negative) U Methamphetamines Scrn Negative (Negative) Ur MDMA Scrn (Ecstasy) Negative (Negative) U Benzodiazepines Scrn Negative (Negative) Urine Cocaine Screen Negative (Negative) U Marijuana (THC) Screen Negative (Negative) Point of Care Testing Glucose POC 101 Urine Dip Bedside Urine Glucose Negative Bedside Urine Bilirubin - Negative Bedside Urine Ketone - Negative Urine Specific [place] 1.015 Bedside Urine Occult Blood + Bedside Urine pH 6.0 Bedside Urine Protein - Negative Bedside Urine Urobilinogen - Negative Bedside Urine Nitrite + Positive Bedside Urine Leukocytes ++ 125 Esterase Imaging Data Chest x-ray: Radiologist's Impression: PROCEDURE:? XR CHEST 1V ? INDICATIONS:? Possible stroke ? TECHNIQUE:? One view of the chest was acquired.? ? COMPARISON:? None. ? FINDINGS:? ? Surgical changes and devices:? None.? ? Lungs and pleura:? On this semiupright portable chest examination, no large pneumothorax or large pleural effusions are seen.? No focal infiltrates are seen.? Low lung volumes are noted. This causes a crowded appearance to the lung markings and limits evaluation.? ? Mediastinum:? Mediastinal contours appear normal.? Heart size is normal.? ? Bones and chest wall:? No suspicious bony lesions.? Age-appropriate bony degenerative changes are seen.? Overlying soft tissues appear unremarkable.? ? ? IMPRESSION:? ? Limited portable chest examination, without a significant cardiopulmonary abnormality identified.? ? ? Dictated by: Hayes Zamora M.D. on 01/19/2023 at 9:41 ?? CT scan - head: Radiologist's Impression: PROCEDURE:? CT HEAD/BRAIN WO CON ? INDICATIONS:? dizziness, woke w/ symptoms ? TECHNIQUE:? Noncontrast 4.5 mm thick angled axial sections acquired from the foramen magnum to the vertex, with coronal and sagittal reformats.? For radiation dose reduction, the following was used:? automated exposure control, adjustment of mA and/or kV according to patient size.? ? COMPARISON:? None. ? FINDINGS:? Image quality:? Excellent.? ? CSF spaces:? Basal cisterns are patent.? No extra-axial fluid collections.? The ventricles are symmetric in size and shape.? ? Brain:? No intracranial bleeds or masses.? There is cerebral volume loss for age, with resultant ventricular and sulcal prominence.? There are periventricular and deep white matter chronic small vessel ischemic changes.? There is intracranial internal carotid artery atherosclerosis.? ? Skull and face:? Calvarium and visualized facial bones appear intact, without suspicious lesions.? ? Sinuses:? Visualized sinuses and mastoids are clear.? ? IMPRESSION:? No evidence acute intracranial process. ? ? Dictated by: Shay Harper M.D. on 01/19/2023 at 11:41 ? ? CTA - brain/neck: Radiologist's Impression: PROCEDURE:? CT ANGIO HEAD AND NECK ? INDICATIONS:? dizziness, woke w/ symptoms ? TECHNIQUE:? After the administration of intravenous contrast, 1 mm thick sections acquired from the aortic arch through the [place] of [place].? Post-contrast 4.5 mm thick sections then re-acquired from the foramen magnum to the vertex.? 3-dimensional gxhrdcz-jddhrcary-iybrvsfrad (MIP) and/or volume rendering reformats were acquired of the central intracranial vasculature and neck separately. For radiation dose reduction, the following was used:? automated exposure control, adjustment of mA and/or kV according to patient size.? ? COMPARISON:? None. ? FINDINGS:? Image quality:? Excellent.? ? BRAIN:? CSF spaces:? Ventricles are normal in size and shape.? Basal cisterns are patent.? No extra-axial fluid collections.? ? Brain:? No midline shift.? No intracranial bleeds or masses.? [place]-white matter interface appears intact.? ? Skull and face:? Calvarium and facial bones appear intact, without suspicious lesions.? Orbits appear normal.? ? Sinuses:? Mild bilateral maxillary sinus mucosal thickening and patchy bilateral ethmoid disease consistent with chronic sinusitis. ? HEAD CT ANGIOGRAPHY:? Anterior circulation:? Intracranial internal carotid arteries are normal in size and flow.? The flow within the paired anterior cerebral arteries is normal and symmetric.? The flow within the middle cerebral arteries is normal and symmetric.? The anterior communicating artery is seen.? No aneurysms are seen.? ? Posterior circulation:? Visualized portions of the vertebral arteries demonstrate normal caliber, and join to form a normal appearing basilar artery.? Flow within the posterior cerebral arteries is normal and symmetric.? No aneurysms are seen.? ? NECK CT ANGIOGRAPHY:? Carotid system:? The great vessels demonstrate a conventional anatomy as they arise from the aortic arch.? 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 The origins of the common carotid arteries appear patent.? The common carotid arteries demonstrate normal caliber and courses.? The bifurcation regions are both widely patent.? The internal carotid arteries demonstrate normal calibers and courses.? ? Posterior circulation:? The origins of the vertebral arteries both appear widely patent.? The more superior extracranial portions of both vertebral arteries also demonstrate normal courses and calibers.? They join to form a normal appearing basilar artery.? ? Soft tissues:? Visualized neck soft tissues demonstrate no suspicious abnormalities.? ? Bones:? No suspicious bony lesions.? Visualized cervical spine appears normally aligned.? IMPRESSION:? ? 1. No evidence acute intracranial process. ? 2. Mild chronic sinus disease. ? 3. Unremarkable CTA head.? No stenosis, aneurysm, occlusion, or focal filling defect. ? 4. Widely patent carotids and vertebral arteries. ? 5. 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 ? Comment:? Recommend follow-up CT in 12 months to document stability of the size of the ascending aorta.? ? ? Any quantitative measurements of stenosis were performed using NASCET criteria.? ? ? Dictated by: Shay Harper M.D. on 01/19/2023 at 11:42 ? ? Approved by: Shay Harper M.D. on 01/19/2023 at 11:48? ECG Data Interpretation: Normal sinus rhythm rate 63 MD interval 194 QRS 102 QTC 437 Q-waves noted inferior leads without ST elevations or depressions MDM Narrative Medical decision making narrative: Patient 82-year-old male history of hypertension hyperlipidemia coronary artery disease presenting today with dizziness. He is no prior history of vertigo. She was given meclizine which did not help. Noncontrast CT and CT angio do not show any evidence of stroke. Blood work is overall reassuring no evidence of damage. No leukocytosis anemia electrolyte abnormality or ice. Troponin is also negative. Due to ongoing dizziness he is given a small amount of Ativan. After the Ativan he actually improved quite a bit and was able to ambulate without any difficulty. He is found to have nitrates and leukocytes in his urine consistent with a UTI but no evidence of sepsis. This actually may be causing his dizziness. Is reasonable to start antibiotics. Prescription is sent along with some meclizine. Discharge Plan Departure Patient Disposition: Home Clinical Impression: Acute UTI, Vertigo Instructions: Benign Paroxysmal Positional Vertigo, DI for Urinary Tract Infection (UTI) Activity Restrictions/Additional Instructions: *You have been diagnosed with bladder infection, vertigo *What to do: I think her dizziness might be related to your *Continue to take medications as directed--> SENT TO [facility] Keflex 500 mg twice daily for 7 days Meclizine 25-50 mg every 8 hours if needed for dizziness *Follow up with your primary care provider in 2-3 days or call [phone] *Return to ER if you should have increasing dizziness falls confusion or any new, worsening or concerning symptoms Prescriptions: New meclizine 25 mg tablet 25 mg PO TID PRN (Reason: dizziness) Qty: 10 0RF cephalexin 500 mg capsule 500 mg PO BID 7 Days Qty: 14 0RF No Action losartan 50 mg Tablet 50 mg PO SEEINSTR Rx Instructions: 50mg qam, 100 qpm carvedilol 25 mg Tablet 25 mg PO BID furosemide 20 mg Tablet 20 mg PO DAILY multivitamin Capsule 1 cap PO DAILY fluticasone propionate 50 mcg/actuation [place],Suspension 1 spray INTRANASAL DIRECTED terazosin 10 mg Capsule 10 mg PO DAILY finasteride 5 mg Tablet 5 mg PO DAILY omeprazole 20 mg Tablet,Delayed Release (Dr/Ec) 20 mg PO DAILY aspirin 81 mg tablet,delayed release (DR/EC) 81 mg PO DAILY amlodipine 5 mg tablet 2.5 mg PO DAILY atorvastatin 20 mg tablet 20 mg PO DAILY Referrals: Ana Mendoza MD [Primary Care Provider] - Stand Alone Forms: Patient Portal/API
[2023-01-19 10:53] LABS: Troponin I < 0.012 ng/mL (0.01-0.034)
[2023-01-19 11:09] LABS: CKMB % Relative Index 1.9 % (1.5-5.0); Creatine Kinase MB 2.22 ng/mL (<2.37)
[2023-01-19 13:01] LABS: UR Morphine/Opiate cutoff 300 Negative (Negative); Ur Creatinine Normal (Normal); Ur Specific Gravity Normal (Normal); Urine Amphetamines Negative (Negative); Urine Barbiturates Negative (Negative); Urine Benzodiazepines Negative (Negative); Urine Cocaine Negative (Negative); Urine MDMA Negative (Negative); Urine Methadone Negative (Negative); Urine Methamphetamines Negative (Negative); Urine Oxycodone Negative (Negative); Urine Phencyclidine Negative (Negative); Urine Tetrahydrocannabinol Negative (Negative); Urine Tricyclic Antidepressant Negative (Negative); Urine pH Normal (Normal)
[2023-01-19] MEDS: LORazepam 2 MG/ML INJ 0.5 MG IV (13:35)
[2023-01-19 15:03] LABS: Amorphous Sediment Urine 1+; Bacteria Urine Many (>30); RBC Urine None Seen (0-5/HPF); WBC Urine 5-10/HPF (0-5/HPF)
== END 2023-01-19 14:30 | disposition home or self-care (01) ==
PROVIDERS: Emergency Provider Emergency Medicine; PCP Internal Medicine
DX: N39.0 Urinary tract infection, site not specified (principal); R42 Dizziness and giddiness; I10 Essential (primary) hypertension; Z79.82 Long term (current) use of aspirin
CPT/HCPCS: 36415; 70450; 70496; 70498; 71045; 80053; 80305; 81003; 81015; 82550; 82553; 82962; 83735; 84484; 85025; 85610; 85730; 87077; 87086; 87186; 93005; 93010; 96374; 96375; 99284; 99285; J2060; J2405; Q9967

== ENCOUNTER → 2024-10-19 12:15 | Outpatient (CLI) | payer MEDICARE, OTHER, SELFPAY ==
[2020-09-26 13:18] VITALS: BMI 35.9
--- NOTE | 2024-10-19 12:19 | DI.ECHO.S_ITS ---
[facility] : : [address] : : [place] : : [id number] : : Phone: [phone] Echocardiogram Report + + :Name: GRACE SANDY Study Date: 10/19/2024 Height: 72 in : :[facility] ReadingLocation: Weight: 255 lb : : Gender: Male BSA: 2.4 m2 : :: 1940 Age: 84 yrs BP: 135/80 mmHg: :Reason For Study: CORONARY ARTERY DISEASE : :Ordering Physician: SOPHIA, : :MILTON Performed By: Emilee Dave : :Referring: MILTON LO : + + Interpretation Summary The left ventricle is normal in size and wall thickness. The ejection fraction is estimated to be 45-50%. There is basal posterolateral wall hypokinesis. There is basal inferior wall hypokinesis. The right ventricle is mildly dilated. The right ventricular systolic function is normal. The right ventricular systolic pressure is estimated to be at least 29 mmHg based on an estimated right atrial pressure of 3 mm Hg. The left atrial size is normal. There is mild mitral regurgitation. There is no other significant valvular heart disease. The aortic root is normal size. Procedure: A two-dimensional transthoracic echocardiogram with color flow and Doppler was performed. The study quality was technically adequate. Comparison is made with the echocardiogram of 03/28/2020. The patient was in sinus rhythm with heart rates between 51-72 bpm during the exam. Left Ventricle: The left ventricle is normal in size and wall thickness. The ejection fraction is estimated to be 45-50%. There is basal inferior wall hypokinesis. There is basal posterolateral wall hypokinesis. Right Ventricle: The right ventricle is mildly dilated. The right ventricular systolic function is normal. Atria: The left atrial size is normal. The right atrium is borderline dilated. There is no Doppler evidence for an interatrial shunt. Mitral Valve: The mitral valve leaflets appear mildly thickened, but open well. The mitral valve leaflets appear to open well. There is no mitral valve stenosis. There is mild mitral regurgitation. Aortic Valve: The aortic valve is trileaflet. The aortic valve opens well. There is no aortic valve stenosis. No aortic regurgitation is present. Tricuspid Valve: The tricuspid valve leaflets are thin and pliable. There is mild tricuspid regurgitation. The right ventricular systolic pressure is estimated to be at least 29 mmHg based on an estimated right atrial pressure of 3 mm Hg. Pulmonic Valve: The pulmonic valve leaflets are thin and pliable; valve motion is normal. There is mild pulmonic regurgitation. There is no other significant valvular heart disease. Great Vessels: The aortic root is normal size. The dimensions of the ascending aorta are normal. Borderline dilated aortic arch. The IVC is of normal diameter and collapses greater than 50% with a sniff. This suggests a low right atrial pressure of 3 mm Hg. Pericardium/ Pleura There is no pericardial effusion. There is no pleural effusion. MMode/2D Measurements & Calculations LVIDd: 5.5 cm LVOT diam: 2.3 cm LVIDs: 4.3 cm Ao root diam: 3.5 cm FS: 21.3 % asc Aorta Diam: 3.8 cm EPSS: 2.0 cm Ao Arch Diam (Prox Trans): 3.4 cm IVSd: 1.1 cm LVPWd: 0.73 cm LV cruz. diameter/BSA (cm/m^2): 2.3 LV sys. diameter/BSA (cm/m^2): 1.8 LA A2 area: 23.1 cm2 RA long axis: 5.7 cm LA A4 area: 24.9 cm2 RA area: 22.9 cm2 LA length (vol): 6.7 cm RA vol: 77.9 ml LA vol: 72.9 ml RA : 33.0 ml/m2 LA vol index: 30.8 ml/m2 IVC diam: 2.0 cm RVD1 (basal): 4.3 cm RVD2 (mid): 3.5 cm TAPSE: 2.5 cm Doppler Measurements & Calculations Ao V2 max: 135.4 cm/sec LVOT Max Robert: 73.6 cm/sec Ao V2 mean: 97.2 cm/sec LV V1 max P.2 mmHg Ao max P.3 mmHg LV V1 VTI: 18.2 cm Ao mean P.2 mmHg AISSATOU(I,D): 2.4 cm2 Ao V2 VTI: 32.2 cm AISSATOU(V,D): 2.3 cm2 sev ratio: 0.57 AISSATOU indexed to BSA (cm^2/m^2): 1.0 MV E max robert: 62.0 cm/sec TR max robert: 254.4 cm/sec MV A max robert: 93.0 cm/sec TR max P.9 mmHg MV E/A: 0.67 PA V2 max: 101.8 cm/sec Med Peak E' Robert: 3.2 cm/sec PA V2 mean: 70.5 cm/sec E/E' med: 19.4 PA mean P.2 mmHg Lat Peak E' Robert: 3.0 cm/sec PA pr(Accel): 15.6 mmHg E/E' lat: 20.3 E/e' average: 19.9 MV dec time: 0.30 sec MVA(VTI): 1.7 cm2 MV V2 mean: 58.1 cm/sec SV(LVOT): 76.5 ml MV mean P.6 mmHg MV V2 VTI: 44.6 cm Reading Physician:02:[id number] PM
== END ==
PROVIDERS: PCP Family Medicine; Referring Provider Internal Medicine Cardiovascular Disease; Visit Provider Internal Medicine Cardiovascular Disease
DX: I08.1 Rheumatic disorders of both mitral and tricuspid valves (principal); I25.10 Atherosclerotic heart disease of native coronary artery without angina pectoris; I10 Essential (primary) hypertension
CPT/HCPCS: 93306

== ENCOUNTER → 2024-10-19 12:17 | Outpatient (CLI) | payer MEDICARE, OTHER, SELFPAY ==
[2020-09-26 13:18] VITALS: BMI 35.9
--- NOTE | 2024-10-19 12:18 | DI.CT.S_ITS ---
PROCEDURE: CT LUNG LOW DOSE SCREENING INDICATIONS: HISTORY OF NICOTINE DEPENDENCE TECHNIQUE: Noncontrast 2.0-2.5 mm thick sections acquired from the pulmonary apices to the posterior costophrenic angles. 7 mm thick axial MIP, and 5 mm coronal and sagittal reformats were then acquired. For radiation dose reduction, the following was used: automated exposure control, adjustment of mA and/or kV according to patient size. COMPARISON: [facility], CR, XR CHEST 1V, 01/19/2023, 10:19. FINDINGS: Image quality: Diagnostic. Lower Neck: No enlarged lymph nodes. Thyroid: No thyroid nodules which require sonographic follow up, per consensus guidelines. Axillae: No enlarged lymph nodes. Chest Wall: Unremarkable. Bones: Unremarkable. Lungs and Pleura: No pneumothorax or pleural effusions. 8 mm average diameter solid nodule at the posterior left lower lobe (3/181). Additional small clustered nodules are seen suggesting possible infectious or inflammatory etiology. Multiple clustered nodules at the left posterior costophrenic angle. Scattered bilateral pulmonary micro nodules. Heart: Heart size is mildly enlarged. Moderate to severe coronary artery calcifications. No pericardial effusion. Thoracic Vessels: The aorta and pulmonary arteries demonstrate normal size. Mediastinum and [place]: No enlarged lymph nodes. Esophagus: No wall thickening. No hiatal hernia. Upper Abdomen: Visualized upper abdomen solid organs and bowel loops appear normal. IMPRESSION: Left lower lobe 8 mm nodule. Multiple additional smaller clustered nodules in the left lower lobe and scattered throughout the right lung, nonspecific but possibly infectious or inflammatory in etiology. LUNG-RADS 4A; recommend 3 month follow-up low-dose chest CT. Clinically Significant Non-pulmonary Findings: Moderate to severe coronary artery calcifications. Consider cardiology referral. Approved by: Law Carpio M.D. on 10/19/2024 at 21:17
== END ==
PROVIDERS: PCP Family Medicine; Referring Provider Family Medicine; Visit Provider Family Medicine
DX: I08.1 Rheumatic disorders of both mitral and tricuspid valves (principal); R91.8 Other nonspecific abnormal finding of lung field; I10 Essential (primary) hypertension; Z87.891 Personal history of nicotine dependence; Z12.2 Encounter for screening for malignant neoplasm of respiratory organs; I25.10 Atherosclerotic heart disease of native coronary artery without angina pectoris; I51.7 Cardiomegaly
CPT/HCPCS: 71250; 71271; 93306